=== PATIENT | female | born 1930 | race Hispanic/Latino ===

== ENCOUNTER 2016-12-23 10:16 | Emergency (ER) | payer MEDICARE, BC ==
[2016-12-23 10:17] VITALS: BMI 28.3
[2016-12-23 10:24] VITALS: TEMP 97.9
--- NOTE | 2016-12-23 11:06 | RAD ---
PROCEDURE: Left Hip with pelvis X-ray Radiographs. HISTORY: r/o fx COMPARISON: Abdomen and pelvis CT examination 05/05/2016. FINDINGS: BONES: There is no acute fracture dislocation of the left hip joint with the pelvic ring appearing intact grossly. This includes the pubic symphysis. No suspicious lytic or blastic change. Diffuse osteopenia suggests osteoporosis JOINTS: Cortical sclerosis at the bilateral sacroiliac and left hip joint are compatible with osteoarthritis, moderate severity. A status post right shoulder replacement. SOFT TISSUES: Gallstones identified the inferior margin of the right lower quadrant confirmed on prior and pelvis CT noted above. OTHER FINDINGS: Instill note is made of multilevel advanced degenerative lumbar spondylosis. The petrous noted in the region of the vagina as well. IMPRESSION: No acute fracture or dislocation left hip joint or the pelvic ring as discussed above. Diffuse osteopenia suggests osteoporosis. Right total hip replacement hardware is identified in position. Other lesser findings as discussed above.
--- NOTE | 2016-12-23 12:22 | RAD ---
PROCEDURE: Left Foot Radiographs. HISTORY: r/o fx COMPARISON: None available. FINDINGS: BONES: Severe diffuse osseous demineralization limits evaluation for acute fracture lines. Oblique lucency is noted on a single view within the distal fibula medially; this is suspected artifactual however recommend correlation with physical exam to exclude possibility of acute fracture. The remainder of the visualized osseous structures appear intact. JOINTS: No dislocation. SOFT TISSUES: Soft tissue swelling. No evidence of radiopaque foreign body. OTHER FINDINGS: None. IMPRESSION: Severe diffuse osseous demineralization limits evaluation for acute fracture lines. Oblique lucency is noted on a single view within the distal fibula medially; this is suspected artifactual however recommend correlation with physical exam to exclude possibility of acute fracture. Soft tissue swelling.
[2016-12-23 13:45] VITALS: BP 155/84; PULSE 78; RESP 16; O2SAT 98
--- NOTE | 2016-12-23 14:03 | C.PDOC ---
History Of Present Illness 86 y/o female presents to ED s/p trip and fall PTAwith complaints of left hip and left foot pain. Patient states she was using walker and walker got stuck in door way. Patient reports falling onto wall and sliding down injuring left side. Patient is able to bear weight and admits to chronic leg problems/pain for years. No other complaints at this time. Time Seen by Provider: 12/23/16 10:32 Chief Complaint (Nursing): Lower Extremity Problem/Injury History Per: Patient History/Exam Limitations: no limitations Onset/Duration Of Symptoms: Hrs Current Symptoms Are (Timing): Still Present - Hip Description Of Injury: Fell - Knee Description Of Injury: Fell Past Medical History Reviewed: Historical Data, Nursing Documentation, Vital Signs Vital Signs: Last Vital Signs Temp 97.9 F 12/23/16 10:21 Pulse 78 12/23/16 13:45 Resp 16 12/23/16 13:45 BP 155/84 H 12/23/16 13:45 Pulse Ox 98 12/23/16 14:04 - Medical History PMH: Anemia, Back Problems Surgical History: No Surg Hx - [facility] Procedures ENDO RECTUM POLYPECTOMY (10/10/02) Family History: States: No Known Family Hx - Social History Hx Alcohol Use: No Hx Substance Use: No - Immunization History Hx Tetanus Toxoid Vaccination: No Hx Influenza Vaccination: Yes (2 weeks ago) Hx Pneumococcal Vaccination: No Review Of Systems Except As Marked, All Systems Reviewed And Found Negative. Eyes: Negative for: Vision Change Cardiovascular: Negative for: Chest Pain Respiratory: Negative for: Shortness of Breath Gastrointestinal: Negative for: Nausea, Vomiting Musculoskeletal: Positive for: Leg Pain, Other (hip pain) Skin: Negative for: Rash Neurological: Negative for: Weakness, Numbness Physical Exam - Physical Exam Appears: Non-toxic, No Acute Distress Skin: Warm, Dry, No Rash Head: Atraumatic, Normacephalic Eye(s): bilateral: Normal Inspection Oral Mucosa: Moist Neck: Normal ROM, Supple Extremity: Tenderness (mild to lateral dorsal portion of left leg and left hip) , Capillary Refill (<2 seconds), No Deformity, Other (chronic venous changes bilateral) Pulses: Left Dorsalis Pedis: Normal, Right Dorsalis Pedis: Normal Neurological/Psych: Oriented x3, Normal Speech, Normal Cognition, Normal Motor, Normal Sensation ED Course And Treatment O2 Sat by Pulse Oximetry: 98 (RA) Pulse Ox Interpretation: Normal Disposition - Disposition Disposition: HOME/ ROUTINE Disposition Time: 12:25 Condition: GOOD Additional Instructions: Thank you for letting us take care of you today. Your provider was Dr. Dempsey. You were treated for hip and foot contusion. The emergency medical care you received today was directed at your acute symptoms. If you were prescribed any medication, please fill it and take as directed. It may take several days for your symptoms to resolve. Return to the Emergency Department if your symptoms worsen, do not improve, or if you have any other problems. Please contact your doctor or call one of the physicians/clinics you have been referred to that are listed on the Patient Visit Information form that is included in your discharge packet. Bring any paperwork you were given at discharge with you along with any medications you are taking to your follow up visit. Our treatment cannot replace ongoing medical care by a primary care provider (PCP) outside of the emergency department. Thank you for allowing the [facility] team to be part of your care today. Apply ice to the areas for the next 2-3 days. You can take ibuprofen or tylenol as needed for pain. Please follow up with your doctor in 2-3 days for re-evaluation and further management. Instructions: Foot Contusion (ED), Hip Contusion (ED) Forms: Kiromic (Romanian) - Clinical Impression Clinical Impression: Hip pain, Foot pain - Scribe Statement The provider has reviewed the documentation as recorded by the Arnulfoibangeles Osullivan All medical record entries made by the Arnulfoibangeles were at my direction and personally dictated by me. I have reviewed the chart and agree that the record accurately reflects my personal performance of the history, physical exam, medical decision making, and the department course for this patient. I have also personally directed, reviewed, and agree with the discharge instructions and disposition.
== END 2016-12-23 13:45 | disposition home or self-care (01) ==
LOC: C.ER 10:16
DX: M25.552 Pain in left hip (principal); M79.672 Pain in left foot

== ENCOUNTER 2017-01-09 02:59 | Emergency (ER) | payer MEDICARE, BC ==
[2017-01-09 02:59] VITALS: BMI 28.3
[2017-01-09] MEDS ORDERED: Sodium Chloride 0.9% 1,000 ML IV ONE (04:42)
[2017-01-09 05:03] LABS: BASO # 0.1 K/uL (0.0-0.2); BASO % 0.8 % (0.0-2.0); EOS # 0.3 K/uL (0.0-0.7); EOS % 2.8 % (0.0-4.0); HEMATOCRIT 34.2 % (34.0-47.0); LYMPH # 4.1 K/uL (1.0-4.3); LYMPH % 33.4 % (20.0-40.0); MEAN CELL VOLUME 92.8 fL (81.0-99.0); MEAN CORPUSCULAR HEMOGLOBIN 30.3 pg (27.0-31.0); MEAN CORPUSCULAR HGB CONC 32.7 g/dL (33.0-37.0); MEAN PLATELET VOLUME 9.2 fL (7.2-11.7); MONO # 0.6 K/uL (0.0-0.8); MONO % 5.1 % (0.0-10.0); WHITE BLOOD COUNT 12.1 K/uL (4.8-10.8)
[2017-01-09 05:10] LABS: INR 1.1
[2017-01-09 05:12] LABS: POTASSIUM 3.8 mmol/L (3.6-5.2)
[2017-01-09 05:15] LABS: ALB/GLOB RATIO 1.4 (1.0-2.1); BILIRUBIN,TOTAL 0.6 mg/dL (0.2-1.3); CALCIUM 9.8 mg/dl (8.6-10.4); TOTAL PROTEIN 7.1 g/dL (6.3-8.3)
[2017-01-09 05:26] LABS: RBC URINE 4053 /hpf (0-3); URINE BACTERIA MOD (<OCC); URINE BILIRUBIN NEGATIVE (NEGATIVE); URINE BLOOD 3+ (NEGATIVE); URINE COLOR Amber (YELLOW); URINE GLUCOSE (UA) 1+ mg/dL (Normal); URINE KETONE TRACE mg/dL (NEGATIVE); URINE LEUKOCYTE ESTERASE NEG Leu/uL (Negative); URINE PROTEIN 2+ mg/dL (NEGATIVE); URINE UROBILINOGEN NORMAL mg/dL (0.2-1.0)
--- NOTE | 2017-01-09 06:43 | C.PDOC ---
History Of Present Illness 86 yo female BIBA for evaluation of diffuse vaginal bleeding noted since early today. Pt reports, vaginal bleeding started few days ago as spotting and worsen today. Pt sts, noted some clots as well. Otherwise, pt denies known trauma or injury, fever, chills, headache, dizziness, weakness, CP, SOB, dyspnea , diaphoresis, palpitation, abd. pain, N/V/D, denies recent surgery or complaints, Denies anticoagulation therapy. At [facility] time of evaluation appears comfortable, not in any apparent distress. Pt reports previous hx of bladder prolapse with repair 4 yrs ago. Time Seen by Provider: 01/09/17 04:02 Chief Complaint (Nursing): Female Genitourinary History Per: Patient Past Medical History Reviewed: Historical Data, Nursing Documentation, Vital Signs Vital Signs: Last Vital Signs Temp 98 F 01/09/17 03:17 Pulse 65 01/09/17 03:17 Resp 20 01/09/17 03:17 BP 176/67 H 01/09/17 03:17 Pulse Ox 96 01/09/17 03:17 - Medical History PMH: Anemia, Back Problems, Hypercholesterolemia, Hypothyroidism Denies: Chronic Kidney Disease - [facility] Procedures ENDO RECTUM POLYPECTOMY (10/10/02) Family History: States: No Known Family Hx - Social History Hx Alcohol Use: No Hx Substance Use: No - Immunization History Hx Tetanus Toxoid Vaccination: No Hx Influenza Vaccination: Yes Hx Pneumococcal Vaccination: No Review Of Systems Except As Marked, All Systems Reviewed And Found Negative. Constitutional: Negative for: Fever, Chills ENT: Negative for: Throat Pain Cardiovascular: Negative for: Chest Pain Respiratory: Negative for: Cough, Shortness of Breath Gastrointestinal: Negative for: Nausea, Vomiting, Abdominal Pain, Diarrhea Genitourinary: Positive for: Vaginal Bleeding. Negative for: Dysuria, Frequency Musculoskeletal: Negative for: Back Pain Neurological: Negative for: Altered Mental Status Physical Exam - Physical Exam Appears: Well, No Acute Distress Skin: Normal Color, Warm, Dry Eye(s): bilateral: PERRL Nose: No Flaring Throat: No Erythema, No Exudate, No Drooling Neck: Trachea Midline, Supple Cardiovascular: Rhythm Regular, No Murmur, No JVD Respiratory: No Decreased Breath Sounds, No Accessory Muscle Use, No Stridor, No Wheezing Gastrointestinal/Abdominal: Soft, No Tenderness, No Distention, No Guarding Back: No CVA Tenderness Pelvic: Vaginal Bleeding (continous bloody oozng with uterine prolapse) Extremity: Normal ROM, No Pedal Edema Neurological/Psych: Oriented x3, Normal Speech ED Course And Treatment - Laboratory Results Result Diagrams: 01/09/17 05:00 01/09/17 05:00 Lab Interpretation: No Acute Changes O2 Sat by Pulse Oximetry: 96 Pulse Ox Interpretation: Normal Progress Note: Pt remained stable during the ED evaluation. Blood work review and appears without acute abnormalities. CT abd/pelvis-pending. Case discussed with Galina and sign out for further eval/dispo. Disposition - Disposition Disposition Time: 06:47 Condition: STABLE - Clinical Impression Clinical Impression: Vaginal bleeding, Vaginal prolapse Physician Patient Turnover Patient Signed Over To: Mari Pa Handoff Comments: CT abd/pelvis, re-eval,dispo
[2017-01-09] MEDS ORDERED: Iodixanol 320 MG/ML 100 ML BOTTLE IV ONE (09:31)
--- NOTE | 2017-01-09 11:31 | CT ---
PROCEDURE: CT abdomen pelvis dated 01/09/2017 HISTORY: Vaginal bleeding COMPARISON: Comparison made with prior CT scan of the abdomen pelvis dated 05/05/2016 TECHNIQUE: Contiguous axial images of the abdomen and pelvis. Oral contrast was administered. No IV contrast given. Coronal and Sagittal reformats generated. This CT exam was performed using one or more of the following dose reduction techniques: Automated exposure control, adjustment of the mA and/or kV according to patient size, and/or use of iterative reconstruction technique. Total exam DLP = 799.47 mGy-cm. FINDINGS: LOWER THORAX: Mild bibasilar atelectasis/ scarring changes. No effusion or basilar pneumothorax. . Heart size is within range of normal. No significant pericardial effusion. Extensive on mitral valve calcification. LIVER: Re- demonstrated are multiple nonspecific small low-attenuation foci scattered throughout the hepatic parenchyma of uncertain etiology though essentially unchanged in overall appearance so far as can be seen allowing for differences in patient positioning, slice placement and lack of intravenous contrast material on the current study. The. GALLBLADDER AND BILE DUCTS: Gallbladder is moderately distended with multiple intraluminal gallbladder calculi. PANCREAS: Pancreas is again seen to be somewhat atrophic and fatty replaced. The the the the SPLEEN: Spleen appears grossly unremarkable. ADRENALS: Unremarkable. KIDNEYS AND URETERS: Multiple bilateral renal cysts are again seen 1 of which arises from the lateral upper pole left kidney that is somewhat hyperdense with Hounsfield units in the 50s. This could represent hyperdense cyst. Consider followup on renal ultrasound to confirm and exclude solid lesion. No BLADDER: The urinary bladder is predominately obscured by streak and beam hardening artifact arising from right-sided total hip replacement. REPRODUCTIVE: What appears to represent the uterus is also partially obscured by streak and beam hardening artifact arising from right total hip replacement. . In situ pessary. APPENDIX: Appendix not seen with complete certainty however no obvious inflammatory changes right lower quadrant of the abdomen. BOWEL: Evaluation of the bowel is limited due to the lack of oral contrast material. The stomach is incompletely distended which presumably accounts for slight thick-walled appearance. Gastritis or other intrinsic/invasive wall lesion cannot be excluded. Visualized loops of small bowel exhibit normal contour and caliber. No evidence of acute mechanical small bowel obstruction. Extensive diverticulosis the bulk of which arise from the sigmoid and to a lesser degree distal descending colon. No definitive radiographic evidence of acute diverticulitis PERITONEUM: Unremarkable. No fluid collection. No free air. Small fat containing umbilical hernia. LYMPH NODES: Unremarkable. No enlarged lymph nodes. VASCULATURE: Partially calcified atherosclerotic plaque seen along the abdominal aorta and iliac arteries. BONES: Re- demonstrated are chronic appearing anterior wedge compression deformities of the L3 and L4 segments former more significant than latter. There is also on incomplete compression deformity submitted and left lateral superior L5 endplate. OTHER FINDINGS: None. IMPRESSION: Cholelithiasis. Re- demonstrated arm multiple small nonspecific low-attenuation foci scattered throughout the hepatic parenchyma on which have not significantly changed so far as can be determined given differences between studies as mentioned above. Multiple bilateral renal cysts. There is however a small exophytic hyperdense focus arising from the lateral aspect upper pole left kidney that could represent hyperdense cyst. Followup ultrasound could be performed to exclude a solid lesion. Urinary bladder and uterus partially obscured by streak and beam hardening artifact. In situ pessary. Extensive diverticulosis with no definitive radiographic evidence of acute diverticulitis. See above discussion for additional findings and details.
[2017-01-09 14:38] VITALS: BP 160/82; PULSE 76; RESP 16; TEMP 98.4; O2SAT 99
--- NOTE | 2017-01-09 16:48 | CP.PCM.CON ---
<Shayy Lemus - Last Filed: 01/09/17 19:22> Meds Home Medications: Home Medication List Medication Instructions Recorded Confirmed Type Nitrofurantoin Macrocrystals 1 cap PO BID #20 cap 01/09/17 Rx [Macrobid] Allergies/Adverse Reactions: Allergies Allergy/AdvReac Type Severity Reaction Status Date / Time levofloxacin [From Levaquin] Allergy Verified 01/09/17 03:25 Penicillins Allergy RASH Verified 01/09/17 03:25 Results - Vital Signs Recent Vital Signs: Last Vital Signs Temp 98.4 F 01/09/17 14:37 Pulse 76 01/09/17 14:37 Resp 16 01/09/17 14:37 BP 160/82 H 01/09/17 14:37 Pulse Ox 99 01/09/17 14:37 - Labs Result Diagrams: 01/09/17 05:00 01/09/17 05:00 Labs: Laboratory Results - last 24 hr 01/09/17 01/09/17 01/09/17 05:00 05:00 05:00 WBC 12.1 H D RBC 3.68 L Hgb 11.2 Hct 34.2 MCV 92.8 D MCH 30.3 MCHC 32.7 L RDW 14.0 Plt Count 292 MPV 9.2 Neut % (Auto) 57.9 Lymph % (Auto) 33.4 [place] % (Auto) 5.1 Eos % (Auto) 2.8 Baso % (Auto) 0.8 Neut # 7.0 Lymph # 4.1 [place] # 0.6 Eos # 0.3 Baso # 0.1 PT 12.0 INR 1.1 APTT 34 Sodium Potassium Chloride Carbon Dioxide Anion Gap BUN Creatinine Est GFR ( Amer) Est GFR (Non-Af Amer) Random Glucose Calcium Total Bilirubin AST ALT Alkaline Phosphatase Total Protein Albumin Globulin Albumin/Globulin Ratio Urine Color [place] Urine Clarity Turbid Urine pH 6.0 Ur Specific [place] 1.015 Urine Protein 2+ H Urine Glucose (UA) 1+ Urine Ketones Trace Urine Blood 3+ H Urine Nitrate Negative Urine Bilirubin Negative Urine Urobilinogen Normal Ur Leukocyte Esterase Neg Urine RBC (Auto) 4053 H Urine Bacteria Mod H Stool Occult Blood 01/09/17 01/09/17 05:00 12:06 WBC RBC Hgb Hct MCV MCH MCHC RDW Plt Count MPV Neut % (Auto) Lymph % (Auto) [place] % (Auto) Eos % (Auto) Baso % (Auto) Neut # Lymph # [place] # Eos # Baso # PT INR APTT Sodium 136 Potassium 3.8 Chloride 102 Carbon Dioxide 21 L Anion Gap 17 BUN 30 H Creatinine 1.2 Est GFR ( Amer) 51 Est GFR (Non-Af Amer) 42 Random Glucose 102 Calcium 9.8 Total Bilirubin 0.6 AST 27 ALT 27 Alkaline Phosphatase 256 H Total Protein 7.1 Albumin 4.2 Globulin 2.9 Albumin/Globulin Ratio 1.4 Urine Color Urine Clarity Urine pH Ur Specific [place] Urine Protein Urine Glucose (UA) Urine Ketones Urine Blood Urine Nitrate Urine Bilirubin Urine Urobilinogen Ur Leukocyte Esterase Urine RBC (Auto) Urine Bacteria Stool Occult Blood Negative <Ofelia Chilel - Last Filed: 01/10/17 14:48> History of Present Illness - History of Present Illness History of Present Illness: Asked by BOB Eldridge to evaluate patient for presumed vaginal bleeding Patient was seen and evaluated at approximately 1130 hours. She was received in bed #2; then transferred to the Multi-Purpose Room to facilitate vaginal examination. Patient is a good historian - recalls facts very well; exact dates are not as precise. Patient is an 86 y.o. [id number], LMP - approx mid to late 40's; who presented to the E.D. concerned about new onset "vaginal bleeding", heavy last night. HPI: onset of vaginal spotting 2 days ago. This is the first time she has had any vaginal (post menopausal) bleeding. Currently, feels a sense of pressure in the vaginal area. Patient has a regular basketball commentator provider: Dr. Cid, [facility] - has been with her for 6 yrs (+/-). 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 She had used a pessary for several years; ultimately underwent bladder suspension with "a mesh" approx 5 year ago. However, "the vaginal wise still started to come down"; hence, pessary was resumed. Patient has had no problems with the pessary for "many years. ... I go to Dr. Cid every 3 months". The pessary is removed, cleaned and reinserted. Patient last saw Dr. Cid 1 1/2 weeks ago. 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 Cid took pieces of tissue". P Ob: x 4: female 66 y.o.; male 64 y.o.; male 57 y.o.; female 51 y.o. Spont Ab x 1 P PURSE SEINING HAND: 13 x monthly x 5. Last Pap test - doesn't recall. Last mammogram >= 10 years ago. 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 Patient alludes to there being other possible surgeries Meds: see body of chart Allergies: 1) penicillin = rash; 2) levofloxacin - intense reaction in her veins as drug is infusing Soc Hx: Prev tobacco use x 50 yrs: stopped 27 yrs ago. Denies illicit drug or EtOH use. x 2; x 2. 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 Father age 30s - pneumonia. No other fam h/o cancer Review of Systems - Review of Systems All systems: reviewed and no additional remarkable complaints except - Reproductive: Female Additional comments: postmenopausal bleeding Past Patient History - Infectious Disease Hx of Infectious Diseases: None - Past Medical History & Family History Past Medical History?: Yes - Past Social History Smoking Status: Former Smoker Chewing Tobacco Use: No Cigar Use: No Alcohol: None Home Situation {Lives}: Alone - CARDIAC Hx Hypercholesterolemia: Yes - PULMONARY Hx Respiratory Disorders: No - NEUROLOGICAL Hx Neurological Disorder: Yes Other/Comment: MENIERES DISEASE - HEENT Hx HEENT Problems: No - RENAL Hx Chronic Kidney Disease: No - ENDOCRINE/METABOLIC Hx Hypothyroidism: Yes - HEMATOLOGICAL/ONCOLOGICAL Hx Anemia: Yes - INTEGUMENTARY Hx Dermatological Problems: No - MUSCULOSKELETAL/RHEUMATOLOGICAL Hx Musculoskeletal Disorders: Yes Hx Falls: No Hx Herniated Disk: Yes Hx Unsteady Gait: Yes - GASTROINTESTINAL Hx Gastrointestinal Disorders: Yes Hx Constipation: Yes - GENITOURINARY/GYNECOLOGICAL Hx Genitourinary Disorders: Yes Other/Comment: Cystocele; vaginal wall prolapse : 5 Para: 4 Termination of : 1 - PSYCHIATRIC Hx Substance Use: No - SURGICAL HISTORY Hx Surgeries: Yes Hx Orthopedic Surgery: Yes (RT HIP) Hx Thyroidectomy: Yes Other/Comment: BLADDER SX - ANESTHESIA Hx Anesthesia: Yes Hx Anesthesia Reactions: Yes (SEVERE N&V) Hx Malignant Hyperthermia: No Physical Exam - Constitutional Appears: No Acute Distress - Head Exam Head Exam: NORMAL INSPECTION - ENT Exam ENT Exam: Mucous Membranes Dry - Neck Exam Neck exam: Positive for: Full Rom - Respiratory Exam Respiratory Exam: NORMAL BREATHING PATTERN - Cardiovascular Exam Cardiovascular Exam: REGULAR RHYTHM - GI/Abdominal Exam GI & Abdominal Exam: Soft Additional comments: Appropriate age-related protruberance - Rectal Exam Rectal Exam: NORMAL INSPECTION Additional comments: No external hemorrhoids; possible internal hemorrhoids. Full rectal vault - Exam Additional comments: 1) WD, atrophic external female genitalia. No active bleeding noted as patient was transferred from one stretcher to the other 2) (+) rectocele noted 3) Pessary removed and cleaned 4) Speculum exam: atrophic vaginal vault. NO BLOOD per vagina. right paravaginal wall defect noted. Flushed cervix noted; no bleeding per cervical os noted. Small area of pressure necrosis noted along right lateral vaginal wall , 4 x 5 mm. Oozing stopped with pressure. - Back Exam Additional comments: Mild kyphosis - Neurological Exam Neurological exam: Alert - Psychiatric Exam Psychiatric exam: Anxious - Skin Skin Exam: Dry, Pallor, Warm Results - Vital Signs Recent Vital Signs: Last Vital Signs Temp 98.4 F 01/09/17 14:37 Pulse 76 01/09/17 14:37 Resp 16 01/09/17 14:37 BP 160/82 H 01/09/17 14:37 Pulse Ox 99 01/09/17 14:37 - Labs Result Diagrams: 01/09/17 05:00 01/09/17 05:00 Labs: Laboratory Results - last 24 hr 01/09/17 01/09/17 01/09/17 05:00 05:00 05:00 WBC 12.1 H D RBC 3.68 L Hgb 11.2 Hct 34.2 MCV 92.8 D MCH 30.3 MCHC 32.7 L RDW 14.0 Plt Count 292 MPV 9.2 Neut % (Auto) 57.9 Lymph % (Auto) 33.4 [place] % (Auto) 5.1 Eos % (Auto) 2.8 Baso % (Auto) 0.8 Neut # 7.0 Lymph # 4.1 [place] # 0.6 Eos # 0.3 Baso # 0.1 PT 12.0 INR 1.1 APTT 34 Sodium Potassium Chloride Carbon Dioxide Anion Gap BUN Creatinine Est GFR ( Amer) Est GFR (Non-Af Amer) Random Glucose Calcium Total Bilirubin AST ALT Alkaline Phosphatase Total Protein Albumin Globulin Albumin/Globulin Ratio Urine Color [place] Urine Clarity Turbid Urine pH 6.0 Ur Specific [place] 1.015 Urine Protein 2+ H Urine Glucose (UA) 1+ Urine Ketones Trace Urine Blood 3+ H Urine Nitrate Negative Urine Bilirubin Negative Urine Urobilinogen Normal Ur Leukocyte Esterase Neg Urine RBC (Auto) 4053 H Urine Bacteria Mod H Stool Occult Blood 01/09/17 01/09/17 05:00 12:06 WBC RBC Hgb Hct MCV MCH MCHC RDW Plt Count MPV Neut % (Auto) Lymph % (Auto) [place] % (Auto) Eos % (Auto) Baso % (Auto) Neut # Lymph # [place] # Eos # Baso # PT INR APTT Sodium 136 Potassium 3.8 Chloride 102 Carbon Dioxide 21 L Anion Gap 17 BUN 30 H Creatinine 1.2 Est GFR ( Amer) 51 Est GFR (Non-Af Amer) 42 Random Glucose 102 Calcium 9.8 Total Bilirubin 0.6 AST 27 ALT 27 Alkaline Phosphatase 256 H Total Protein 7.1 Albumin 4.2 Globulin 2.9 Albumin/Globulin Ratio 1.4 Urine Color Urine Clarity Urine pH Ur Specific [place] Urine Protein Urine Glucose (UA) Urine Ketones Urine Blood Urine Nitrate Urine Bilirubin Urine Urobilinogen Ur Leukocyte Esterase Urine RBC (Auto) Urine Bacteria Stool Occult Blood Negative Assessment & Plan - Assessment and Plan (Free Text) Assessment: 86 y.o. post menopausal female new onset bleeding from lower half of body: aetiology unclear. Based on my evaluation, source of bleeding is not of clear basketball commentator aetiology; however, given patient's reported "cancer" diagnosis as stated above, a basketball commentator cause must still be entertained. Other causes are of and GI nature. To this end, would obtain with and GI consultations. Also, need verification with documentation of previously stated basketball commentator cancer. Plan: 1) GI consult 2) consult 3) Obtain medical records from basketball commentator provider to document basketball commentator cancer 4) If basketball commentator cancer is verified, upon discharge, if patient is receptive, please refer to a basketball commentator-oncologist. Thank you for the pleasure of this consultation - Date & Time Date: 01/09/17 Time: 12:30
== END 2017-01-09 14:38 | disposition home or self-care (01) ==
LOC: C.ER 02:59
DX: N93.9 Abnormal uterine and vaginal bleeding, unspecified (principal); N81.10 Cystocele, unspecified; E78.00 Pure hypercholesterolemia, unspecified; E03.9 Hypothyroidism, unspecified
CPT/HCPCS: 74176; 80053; 81001; 85025; 85610; 85730; 99285; G0328

== ENCOUNTER 2017-03-01 15:33 | Inpatient (IN) | payer MEDICARE, BC ==
[2017-03-01 15:33] VITALS: BMI 28.3
[2017-03-01 17:53] LABS: URINE BILIRUBIN NEGATIVE (NEGATIVE); URINE BLOOD 3+ (NEGATIVE); URINE CLARITY Turbid (Clear); URINE GLUCOSE (UA) 1+ mg/dL (Normal); URINE LEUKOCYTE ESTERASE 2+ Leu/uL (Negative); URINE NITRATE POSITIVE (NEGATIVE); URINE PROTEIN 3+ mg/dL (NEGATIVE)
[2017-03-01 17:54] LABS: URINE COLOR RED (YELLOW)
[2017-03-01 18:41] LABS: BASO # 0.1 K/uL (0.0-0.2); BASO % 0.5 % (0.0-2.0); EOS # 0.5 K/uL (0.0-0.7); EOS % 4.9 % (0.0-4.0); HEMOGLOBIN 10.4 g/dL (11.0-16.0); LYMPH # 2.9 K/uL (1.0-4.3); LYMPH % 27.3 % (20.0-40.0); MEAN CELL VOLUME 91.8 fL (81.0-99.0); MEAN CORPUSCULAR HEMOGLOBIN 29.7 pg (27.0-31.0); MEAN CORPUSCULAR HGB CONC 32.4 g/dL (33.0-37.0); MEAN PLATELET VOLUME 10.6 fL (7.2-11.7); MONO # 0.6 K/uL (0.0-0.8); MONO % 5.8 % (0.0-10.0); NEUT # 6.4 K/uL (1.8-7.0); NEUT % 61.5 % (50.0-75.0); NRBC % 0.2 % (0.0-2.0); RBC 3.51 Mil/uL (3.80-5.20); RED CELL DISTRIBUTION WIDTH 15.1 % (11.5-14.5); WHITE BLOOD COUNT 10.5 K/uL (4.8-10.8)
[2017-03-01 18:52] LABS: ALB/GLOB RATIO 0.9 (1.0-2.1); ALBUMIN 3.7 g/dL (3.5-5.0); CALCIUM 9.4 mg/dl (8.6-10.4)
[2017-03-01 18:57] LABS: PROTHROMBIN TIME 11.7 SECONDS (9.7-12.2)
--- NOTE | 2017-03-01 19:03 | C.PDOC ---
History Of Present Illness 86 year old female presents to the ER with a complaint of persistent dysuria and hematuria. Patient was recently treated as outpatient with macrobid with no improvement and was referred to the ER by her PMD Dr. Lopez. Denies back pain or abdominal pain. Time Seen by Provider: 03/01/17 16:18 Chief Complaint (Nursing): Female Genitourinary History Per: Patient History/Exam Limitations: no limitations Onset/Duration Of Symptoms: Days Current Symptoms Are (Timing): Still Present Quality Of Discomfort: Unable To Describe Associated Symptoms: denies: Fever, Chills, Nausea, Vomiting Alleviating Factors: None Recent travel outside of the [place]: No Abnormal Vaginal Bleeding: No Past Medical History Reviewed: Historical Data, Nursing Documentation, Vital Signs Vital Signs: Last Vital Signs Temp 97.9 F 03/01/17 22:32 Pulse 70 03/01/17 22:32 Resp 20 03/01/17 22:32 BP 178/74 H 03/01/17 22:32 Pulse Ox 95 03/01/17 21:39 - Medical History PMH: Anemia, Back Problems, Hypercholesterolemia, Hypothyroidism - [facility] Procedures ENDO RECTUM POLYPECTOMY (10/10/02) Family History: States: Unknown Family Hx - Social History Hx Alcohol Use: No Hx Substance Use: No - Immunization History Hx Tetanus Toxoid Vaccination: No Hx Influenza Vaccination: Yes Hx Pneumococcal Vaccination: No Review Of Systems Constitutional: Negative for: Fever, Chills Gastrointestinal: Negative for: Nausea, Vomiting, Abdominal Pain Genitourinary: Positive for: Dysuria, Hematuria Musculoskeletal: Negative for: Back Pain Physical Exam - Physical Exam Appears: Non-toxic, No Acute Distress Skin: Warm, Dry, Pale Head: Atraumatic, Normacephalic Eye(s): bilateral: Normal Inspection Oral Mucosa: Moist Neck: Normal, Supple Chest: Symmetrical, No Tenderness Cardiovascular: Rhythm Regular Respiratory: Normal Breath Sounds, No Rales, No Rhonchi, No Wheezing Gastrointestinal/Abdominal: Soft, No Tenderness Neurological/Psych: Oriented x3, Normal Speech ED Course And Treatment - Laboratory Results Result Diagrams: 03/01/17 18:35 03/01/17 18:35 Lab Interpretation: Abnormal (UA 315 WBC's) ECG: Interpreted By Ri ECG Rhythm: Sinus Rhythm ECG Interpretation: Normal Rate From EC O2 Sat by Pulse Oximetry: 97 Pulse Ox Interpretation: Normal Progress Note: UTI noted, Rocephin IV, U-cult, blood cult Reevaluation Time: 19:02 Reassessment Condition: Improved - Physician Consult Information Outcome Of Conversation: 1900: d/w Hospitalists- covering Dr. Lopez's pt's, ok to admit. Medical Decision Making Medical Decision Making: peristent UTI, failed outpatient tx with Macrobid, concerning for worstening and risk for Pyelonephritis. Disposition Doctor Will See Patient In The: Hospital Counseled Patient/Family Regarding: Studies Performed, Diagnosis - Disposition Disposition: HOSPITALIZED Disposition Time: 19:03 Condition: GOOD - Clinical Impression Clinical Impression: UTI (urinary tract infection) - Scribe Statement The provider has reviewed the documentation as recorded by the Scribe Hugo Ford All medical record entries made by the Scribe were at my direction and personally dictated by me. I have reviewed the chart and agree that the record accurately reflects my personal performance of the history, physical exam, medical decision making, and the department course for this patient. I have also personally directed, reviewed, and agree with the discharge instructions and disposition.
--- NOTE | 2017-03-01 19:18 | CP.PCM.HP ---
Addendum entered and electronically signed by Darien Wynn DO 03/01/17 22: 11: Patient does have elevated LFTs, have ordered hepatitis panel for that. Cancelled the order for Morphine as well. Original Note: <Darien Wynn - Last Filed: 03/01/17 22:05> History of Present Illness - History of Present Illness History of Present Illness: CC: Hematuria and Dysuira HPI: Patient is a 86 year old female with a history of frequent UTI, abnormal uterine bleeding, Gout, GERD, and low back pain is here because she has been having gross hematuria for several days with a pressure like lower abdominal pain also associated with urination. She says she had a similar UTI in the past and was treated with PO antibiotics and got better. She was given the same oral antibiotic for UTI last week but her symptoms have not resolved. She says she has been having some dizziness as well. She denies fever, chills, nausea, vomiting, chest pain, palpitations, cough, or chest tightness. Patient uses a pessary for uterine prolapse and is sen by her [employer] physician atleast once a month. PMH: see above PSH: right hip surgery, bladder sling surgery FH: Mother diagnosed with cancer when she was in her 80s SH: 50 year smoking history, denies etoh, or illicit drug use, retired, lives alone. PMD: Dr. Ramirez Present on Admission - Present on Admission Any Indicators Present on Admission: No History of DVT/PE: No History of Uncontrolled Diabetes: No Urinary Catheter: No Decubitus Ulcer Present: No History Surgical Site Infection Following: None Review of Systems - Review of Systems All systems: reviewed and no additional remarkable complaints except - Constitutional Constitutional: absent: Chills, Fever - EENT Eyes: absent: Change in Vision - Cardiovascular Cardiovascular: absent: Chest Pain, Palpitations - Respiratory Respiratory: absent: Cough, Dyspnea - Gastrointestinal Gastrointestinal: absent: Abdominal Pain, Constipation, Diarrhea, Nausea, Vomiting - Genitourinary Genitourinary: Dysuria, Hematuria. absent: Urinary Frequency - Reproductive: Female Reproductive:Female: Amenorrhea - Menstruation Menstruation: Amenorrhea - Musculoskeletal Musculoskeletal: Back Pain (chronic). absent: Numbness, Tingling - Integumentary Integumentary: absent: Wounds, Jaundice - Neurological Neurological: absent: Dizziness, Weakness - Psychiatric Psychiatric: absent: Anxiety - Endocrine Endocrine: absent: Palpitations - Hematologic/Lymphatic Hematologic: absent: Other Past Patient History - Infectious Disease Hx of Infectious Diseases: None - Past Medical History & Family History Past Medical History?: Yes - Past Social History Smoking Status: Former Smoker - CARDIAC Hx Hypercholesterolemia: Yes - PULMONARY Hx Respiratory Disorders: No - NEUROLOGICAL Hx Neurological Disorder: Yes Other/Comment: MENIERES DISEASE - HEENT Hx HEENT Problems: No - RENAL Hx Chronic Kidney Disease: No - ENDOCRINE/METABOLIC Hx Hypothyroidism: Yes - HEMATOLOGICAL/ONCOLOGICAL Hx Anemia: Yes - INTEGUMENTARY Hx Dermatological Problems: No - MUSCULOSKELETAL/RHEUMATOLOGICAL Hx Musculoskeletal Disorders: Yes Hx Falls: No Hx Herniated Disk: Yes Hx Unsteady Gait: Yes - GASTROINTESTINAL Hx Gastrointestinal Disorders: Yes Hx Constipation: Yes - GENITOURINARY/GYNECOLOGICAL Hx Genitourinary Disorders: Yes Other/Comment: Cystocele; vaginal wall prolapse - PSYCHIATRIC Hx Substance Use: No - SURGICAL HISTORY Hx Surgeries: Yes Hx Orthopedic Surgery: Yes (RT HIP) Hx Thyroidectomy: Yes Other/Comment: BLADDER SX - ANESTHESIA Hx Anesthesia: Yes Hx Anesthesia Reactions: Yes (SEVERE N&V) Hx Malignant Hyperthermia: No Meds Allergies/Adverse Reactions: Allergies Allergy/AdvReac Type Severity Reaction Status Date / Time levofloxacin [From Levaquin] Allergy Verified 01/09/17 03:25 Penicillins Allergy RASH Verified 01/09/17 03:25 Physical Exam - Constitutional Appears: Non-toxic, No Acute Distress - Eye Exam Eye Exam: Normal appearance, PERRL. absent: Scleral icterus Pupil Exam: NORMAL ACCOMODATION - Respiratory Exam Respiratory Exam: Clear to Auscultation Bilateral. absent: Rales, Rhonchi, Wheezes - Cardiovascular Exam Cardiovascular Exam: REGULAR RHYTHM, RRR, +S1, +S2. absent: Gallop, Rubs - GI/Abdominal Exam GI & Abdominal Exam: Normal Bowel Sounds, Soft. absent: Distended, Guarding, Rebound, Tenderness - Exam External exam: absent: Lacerations, Lesions Additional comments: Pelvix exam shows pessary in place. - Extremities Exam Extremities exam: Positive for: normal inspection, tenderness. Negative for: pedal edema Additional comments: varicose veins present - Back Exam Back exam: NORMAL INSPECTION. absent: CVA tenderness (L), CVA tenderness (R) - Neurological Exam Neurological exam: Oriented x3 - Psychiatric Exam Psychiatric exam: Normal Affect, Normal Mood - Skin Skin Exam: Dry, Pallor, Warm Results - Vital Signs Recent Vital Signs: Last Vital Signs Temp Pulse 89 03/01/17 15:42 Resp 20 03/01/17 15:42 BP 156/76 H 03/01/17 15:42 Pulse Ox 97 03/01/17 19:03 - Labs Result Diagrams: 03/01/17 18:35 03/01/17 18:35 Labs: Laboratory Results - last 24 hr 03/01/17 03/01/17 03/01/17 17:30 18:35 18:35 WBC RBC Hgb Hct MCV MCH MCHC RDW Plt Count MPV Neut % (Auto) Lymph % (Auto) [place] % (Auto) Eos % (Auto) Baso % (Auto) Neut # Lymph # [place] # Eos # Baso # PT 11.7 INR 1.0 APTT 33 Sodium 139 Potassium 3.7 Chloride 107 Carbon Dioxide 23 Anion Gap 13 BUN 33 H Creatinine 1.2 Est GFR ( Amer) 51 Est GFR (Non-Af Amer) 42 Random Glucose 84 Calcium 9.4 Total Bilirubin 0.7 AST 68 H D ALT 57 H D Alkaline Phosphatase 282 H Total Protein 8.1 Albumin 3.7 Globulin 4.3 H Albumin/Globulin Ratio 0.9 L Urine Color Red Urine Clarity Turbid Urine pH 7.0 Ur Specific [place] 1.012 Urine Protein 3+ H Urine Glucose (UA) 1+ Urine Ketones 1+ H Urine Blood 3+ H Urine Nitrate Positive H Urine Bilirubin Negative Urine Urobilinogen 4.0 H Ur Leukocyte Esterase 2+ H Urine WBC (Auto) 315 H Urine RBC (Auto) 7015 H 03/01/17 18:35 WBC 10.5 RBC 3.51 L Hgb 10.4 L Hct 32.2 L MCV 91.8 MCH 29.7 MCHC 32.4 L RDW 15.1 H Plt Count 300 MPV 10.6 Neut % (Auto) 61.5 Lymph % (Auto) 27.3 [place] % (Auto) 5.8 Eos % (Auto) 4.9 H Baso % (Auto) 0.5 Neut # 6.4 Lymph # 2.9 [place] # 0.6 Eos # 0.5 Baso # 0.1 PT INR APTT Sodium Potassium Chloride Carbon Dioxide Anion Gap BUN Creatinine Est GFR ( Amer) Est GFR (Non-Af Amer) Random Glucose Calcium Total Bilirubin AST ALT Alkaline Phosphatase Total Protein Albumin Globulin Albumin/Globulin Ratio Urine Color Urine Clarity Urine pH Ur Specific [place] Urine Protein Urine Glucose (UA) Urine Ketones Urine Blood Urine Nitrate Urine Bilirubin Urine Urobilinogen Ur Leukocyte Esterase Urine WBC (Auto) Urine RBC (Auto) Assessment & Plan (1) UTI (urinary tract infection) Assessment and Plan: UA shows Nitrate, 315 WBCS, Luecocyte esterase, +3 protein. Patient admitted to reg/obs floor. Have given 1 gram of Rocephin in the ED, follow up blood and urine culture. Patient has a allergy to Levoquin and also to PCN. Status: Acute (2) Hematuria Assessment and Plan: will need to monitor patient. Hold her Aspirin and VTE prophylaxis. patient still has blood after obtaining UA through catheter placement. Will get Urology consult. Status: Acute (3) Anemia Assessment and Plan: Hbg is 10.3, continue to monitor transfuse as needed. Status: Acute (4) Vaginal prolapse Assessment and Plan: She has a pessarry, will most likely need [employer] consult. Urology consult, Dr. Obed Walker help appreciated. Status: Chronic (5) Gout Assessment and Plan: continue her home Allopruinol Status: Chronic (6) Hypothyroidism Assessment and Plan: continue her home synthroid 137mcg. Status: Chronic (7) Herniated intervertebral disc of lumbar spine Assessment and Plan: Hold her Celebrex, will given pain Morphine 0.5 mg Q4H prn Status: Chronic (8) Hyperlipidemia Assessment and Plan: continue his home Gemfibrozil. Status: Acute (9) Prophylactic measure Assessment and Plan: Hold chemical VTE due to active bleeding SCDs Pepcid 20mg bid Status: Acute <Clyde Cardenas P - Last Filed: 03/02/17 06:22> Results - Vital Signs Recent Vital Signs: Last Vital Signs Temp 97.4 F L 03/02/17 00:00 Pulse 73 03/02/17 00:00 Resp 20 03/02/17 00:00 BP 159/73 H 03/02/17 00:00 Pulse Ox 97 03/02/17 01:09 - Labs Result Diagrams: 03/01/17 18:35 03/01/17 18:35 Labs: Laboratory Results - last 24 hr 03/01/17 03/01/17 03/01/17 17:30 18:35 18:35 WBC RBC Hgb Hct MCV MCH MCHC RDW Plt Count MPV Neut % (Auto) Lymph % (Auto) [place] % (Auto) Eos % (Auto) Baso % (Auto) Neut # Lymph # [place] # Eos # Baso # PT 11.7 INR 1.0 APTT 33 Sodium 139 Potassium 3.7 Chloride 107 Carbon Dioxide 23 Anion Gap 13 BUN 33 H Creatinine 1.2 Est GFR ( Amer) 51 Est GFR (Non-Af Amer) 42 Random Glucose 84 Calcium 9.4 Total Bilirubin 0.7 AST 68 H D ALT 57 H D Alkaline Phosphatase 282 H Total Protein 8.1 Albumin 3.7 Globulin 4.3 H Albumin/Globulin Ratio 0.9 L Urine Color Red Urine Clarity Turbid Urine pH 7.0 Ur Specific [place] 1.012 Urine Protein 3+ H Urine Glucose (UA) 1+ Urine Ketones 1+ H Urine Blood 3+ H Urine Nitrate Positive H Urine Bilirubin Negative Urine Urobilinogen 4.0 H Ur Leukocyte Esterase 2+ H Urine WBC (Auto) 315 H Urine RBC (Auto) 7015 H 03/01/17 18:35 WBC 10.5 RBC 3.51 L Hgb 10.4 L Hct 32.2 L MCV 91.8 MCH 29.7 MCHC 32.4 L RDW 15.1 H Plt Count 300 MPV 10.6 Neut % (Auto) 61.5 Lymph % (Auto) 27.3 [place] % (Auto) 5.8 Eos % (Auto) 4.9 H Baso % (Auto) 0.5 Neut # 6.4 Lymph # 2.9 [place] # 0.6 Eos # 0.5 Baso # 0.1 PT INR APTT Sodium Potassium Chloride Carbon Dioxide Anion Gap BUN Creatinine Est GFR ( Amer) Est GFR (Non-Af Amer) Random Glucose Calcium Total Bilirubin AST ALT Alkaline Phosphatase Total Protein Albumin Globulin Albumin/Globulin Ratio Urine Color Urine Clarity Urine pH Ur Specific [place] Urine Protein Urine Glucose (UA) Urine Ketones Urine Blood Urine Nitrate Urine Bilirubin Urine Urobilinogen Ur Leukocyte Esterase Urine WBC (Auto) Urine RBC (Auto) Attending/Attestation - Attestation I have personally seen and examined this patient.: Yes I have fully participated in the care of the patient.: Yes I have reviewed all pertinent clinical information: Yes Notes (Text): Assessment * Hematuria, with h/o bladder suspension with pessary and prior surgery, out patient treatment with macrobid, patient is on low dose asa. * H/o DJD spine, hypothyroid, gout, hyperlipidimia Plan * Empiric abx * wyman cath show now grossly bloody urine, culture/sensitivity * Urology consult * Temporary hold asa
[2017-03-02] MEDS: Levothyroxine 50 MCG TAB PO SCH (06:00)
[2017-03-02 07:50] LABS: BASO # 0.1 K/uL (0.0-0.2); EOS # 0.6 K/uL (0.0-0.7); EOS % 6.4 % (0.0-4.0); HEMOGLOBIN 9.9 g/dL (11.0-16.0); LYMPH # 3.1 K/uL (1.0-4.3); MEAN CELL VOLUME 90.4 fL (81.0-99.0); MEAN CORPUSCULAR HEMOGLOBIN 29.8 pg (27.0-31.0); MEAN CORPUSCULAR HGB CONC 32.9 g/dL (33.0-37.0); MEAN PLATELET VOLUME 9.7 fL (7.2-11.7); MONO # 0.5 K/uL (0.0-0.8); MONO % 5.6 % (0.0-10.0); NEUT # 5.3 K/uL (1.8-7.0); RBC 3.33 Mil/uL (3.80-5.20); WHITE BLOOD COUNT 9.7 K/uL (4.8-10.8)
--- NOTE | 2017-03-02 08:12 | RAD ---
PROCEDURE: CHEST RADIOGRAPH, 1 VIEW HISTORY: weakness COMPARISON: 05/05/2016 FINDINGS: LUNGS: Mild venous congestion. Biapical pleural thickening with upper lobe granulomatous changes. Mild bilateral hilar prominence. Calcification at the aortic knob. Mild patchy increased markings at the left lung base. Trace left pleural effusion. PLEURA: As above. CARDIOVASCULAR: Calcification at the aortic knob. OSSEOUS STRUCTURES: No significant abnormalities. VISUALIZED UPPER ABDOMEN: Normal. OTHER FINDINGS: None. IMPRESSION: Mild venous congestion. Biapical pleural thickening with upper lobe granulomatous changes. Mild bilateral hilar prominence. Calcification at the aortic knob. Mild patchy increased markings at the left lung base. Trace left pleural effusion.
[2017-03-02 08:32] LABS: ALB/GLOB RATIO 0.9 (1.0-2.1); ALBUMIN 3.2 g/dL (3.5-5.0); CALCIUM 9.2 mg/dl (8.6-10.4); MAGNESIUM 1.5 mg/dL (1.6-2.3)
[2017-03-02 08:59] LABS: HEPATITIS B SURFACE AG NEGATIVE (NEGATIVE)
[2017-03-02 09:05] LABS: HEPATITIS A IGM NEGATIVE (NEGATIVE); HEPATITIS B CORE AB Negative (NEGATIVE)
[2017-03-02 09:16] LABS: HEPATITIS C ANTIBODY Negative (NEGATIVE)
--- NOTE | 2017-03-02 09:32 | CP.PCM.PN ---
<Annie Adler - Last Filed: 03/02/17 15:14> Subjective - Date & Time of Evaluation Date of Evaluation: 03/02/17 Time of Evaluation: 10:00 - Subjective Subjective: Medicine Note for Hospitalist Service- Dr. Letty Parker Patient was seen and examined at bedside. She repeats she been having rose hematuria x 2 days, denied any associated pain. Admitted to weakness and fatigue. Denied fever, chills, headache, chest pain, SOB, abdominal pain, n/v/d / or c. Objective - Vital Signs/Intake and Output Vital Signs (last 24 hours): Temp Pulse Resp BP Pulse Ox 98.2 F 76 20 159/68 H 97 03/02/17 07:46 03/02/17 07:46 03/02/17 07:46 03/02/17 07:46 03/02/17 07:46 Intake and Output: 03/02/17 03/02/17 06:59 18:59 Intake Total 240 Output Total 650 Balance -410 - Medications Medications: Current Medications Allopurinol (Zyloprim) 300 mg PO DAILY [facility] Famotidine (Pepcid) 20 mg PO BID [facility] Gemfibrozil (Lopid) 600 mg PO BID [facility] Last Admin: 03/01/17 20:15 Dose: 600 mg Ceftriaxone Sodium 1 gm/ (Sodium Chloride) 100 mls @ 100 mls/hr IVPB DAILY [facility] Levothyroxine Sodium (Synthroid) 50 mcg PO DAILY@0630 [facility] Last Admin: 03/02/17 06:00 Dose: 50 mcg Pneumococcal Polyvalent Vaccine (Pneumovax 23 Vaccine) 0.5 ml IM .ONCE ONE Stop: 03/04/17 10:01 - Labs Labs: 03/02/17 07:41 03/02/17 07:41 PT 11.7 SECONDS (9.7-12.2) 03/01/17 18:35 INR 1.0 03/01/17 18:35 APTT 33 SECONDS (21-34) 03/01/17 18:35 - Additional Findings Additional findings: - Constitutional Appears: Non-toxic, No Acute Distress - Eye Exam Eye Exam: Normal appearance, PERRL. absent: Scleral icterus Pupil Exam: NORMAL ACCOMODATION - Respiratory Exam Respiratory Exam: Clear to Auscultation Bilateral. absent: Rales, Rhonchi, Wheezes - Cardiovascular Exam Cardiovascular Exam: REGULAR RHYTHM, RRR, +S1, +S2. absent: Gallop, Rubs - GI/Abdominal Exam GI & Abdominal Exam: Normal Bowel Sounds, Soft. absent: Distended, Guarding, Rebound, Tenderness - Exam External exam: wyman in place - Extremities Exam Extremities exam: Positive for: normal inspection, tenderness. Negative for: pedal edema Additional comments: varicose veins present - Back Exam Back exam: NORMAL INSPECTION. absent: CVA tenderness (L), CVA tenderness (R) - Neurological Exam Neurological exam: Oriented x3 - Psychiatric Exam Psychiatric exam: Normal Affect, Normal Mood - Skin Skin Exam: Dry, Pallor, Warm Assessment and Plan - Assessment and Plan (Free Text) Plan: Rose Hematuria Assessment and Plan: Urology consulted - Dr. Shahnaz Walker - help appreciated Hold her Aspirin and VTE prophylaxis Monitor her hemoglobin UTI Assessment and Plan: Labs: UA shows Nitrate, 315 WBCS, Luecocyte esterase, +3 protein. F/U UC Medications: Started on Rocephin 1 gram IVP daily - pending UC for sensitivities Anemia Assessment and Plan: Hbg is 10.3 Type and Screened, will transfuse as needed Vaginal prolapse Assessment and Plan: She has a pessarry Gout Assessment and Plan: Continue her home Allopruinol Hypothyroidism Assessment and Plan: Continue her home synthroid 137mcg Herniated intervertebral disc of lumbar spine Assessment and Plan: Hold her Celebrex, will given pain Morphine 0.5 mg Q4H prn Hyperlipidemia Assessment and Plan: Continue his home Gemfibrozil Prophylactic measure Assessment and Plan: Hold chemical VTE due to active bleeding, SCDs Pepcid 20mg bid As per patient and daughter Mariana she has a POLST filled out at home - DNR/ DNI - asked daughter or mission assessment specialist to bring a copy in [facility] Nayely Calvert DO, PGY-1 <Travis Parker - Last Filed: 03/02/17 16:25> Objective - Vital Signs/Intake and Output Vital Signs (last 24 hours): Temp Pulse Resp BP Pulse Ox 98.2 F 76 20 159/68 H 97 03/02/17 07:46 03/02/17 07:46 03/02/17 07:46 03/02/17 07:46 03/02/17 07:46 Intake and Output: 03/02/17 03/02/17 06:59 18:59 Intake Total 240 1075 Output Total 650 1180 Balance -410 -105 - Medications Medications: Current Medications Allopurinol (Zyloprim) 300 mg PO DAILY [facility] Last Admin: 03/02/17 09:59 Dose: 300 mg Famotidine (Pepcid) 20 mg PO BID [facility] Last Admin: 03/02/17 09:57 Dose: 20 mg Gemfibrozil (Lopid) 600 mg PO BID [facility] Last Admin: 03/02/17 09:57 Dose: 600 mg Ceftriaxone Sodium 1 gm/ (Sodium Chloride) 100 mls @ 100 mls/hr IVPB DAILY [facility] Last Admin: 03/02/17 09:58 Dose: 100 mls/hr Sodium Chloride (Sodium Chloride 0.9%) 1,000 mls @ 125 mls/hr IV .Q8H [facility] Levothyroxine Sodium (Synthroid) 50 mcg PO DAILY@0630 [facility] Last Admin: 03/02/17 06:00 Dose: 50 mcg Pneumococcal Polyvalent Vaccine (Pneumovax 23 Vaccine) 0.5 ml IM .ONCE ONE Stop: 03/04/17 10:01 - Labs Labs: 03/02/17 07:41 03/02/17 07:41 PT 11.7 SECONDS (9.7-12.2) 03/01/17 18:35 INR 1.0 03/01/17 18:35 APTT 33 SECONDS (21-34) 03/01/17 18:35 Attending/Attestation - Attestation I have personally seen and examined this patient.: Yes I have fully participated in the care of the patient.: Yes I have reviewed all pertinent clinical information, including history, physical exam and plan: Yes Notes (Text): 03/02/17 16:25 Medical attending: Patient was seen and examined by me, agree with the above note by medical imaging technician. This is a very pleasant 78-year-old female, she is relatively good historian as well. She is here due to concerns over having rose hematuria for a few days now. The hemoglobin is currently stable at this time however work and continue to monitor this. For now, hold aspirin, and avoid heparin and Lovenox for the time being. As documented above the resident note the patient had a lot of hematuria on urinalysis. She currently has a Wyman catheter and on her physical exam there is a lot of dark blood color and it. Per talking to the patient she explains to us that she believes she's lost close to 50 pounds over the past year explained to her that this is a very substantial change and because of hematuria order get additional imaging abdomen and pelvis done. She did have imaging done back in December of this year however it was done without contrast Is this ongoing hematuria as well as weight loss, will need to have urology evaluaiton. Thank you very much, Travis Parker
[2017-03-02] MEDS ORDERED: Sodium Chloride 0.9% 1,000 ML IV SCH (09:45)
[2017-03-02] MEDS ORDERED: Iodixanol 320 MG/ML 100 ML BOTTLE IV ONE (12:58)
--- NOTE | 2017-03-02 17:04 | CT ---
Procedure CT Abdomen and Pelvis with and without intravenous contrast History rose hematuria Comparison: CT of the abdomen and pelvis without contrast performed 01/09/17 Technique Axial images of the abdomen were obtained in the pre contrast, portal venous and delayed phases of enhancement. Coronal and sagittal reformats were generated and reviewed. Contrast dose: 100 cc Visipaque Radiation dose: Total exam DLP = 2310.56 mGy-cm. This CT exam was performed using one or more of the following dose reduction techniques: Automated exposure control, adjustment of the mA and/or kV according to patient size, and/or use of iterative reconstruction technique. Findings Lower thorax Mild bibasilar atelectasis. No visible pleural effusion or pneumothorax. Dense atherosclerotic calcifications including coronary arteries and mitral annulus calcification. Trace pericardial effusion. Liver Numerous too small to characterize hepatic hypodensities, statistically likely cysts or hemangiomas. Gallbladder and bile ducts Cholelithiasis. Pancreas Fatty atrophy of the pancreas. Spleen Unremarkable. Adrenals Bilateral adrenal gland hypertrophy. Kidneys and ureters The kidneys enhance symmetrically. No hydronephrosis or obstructing calculus identified. Duplicated left renal collecting system. Bilateral hypo dense renal lesions likely cysts. Additional 8 mm partially exophytic left upper pole hyperdense lesion, indeterminate. Vasculature Extensive dense atherosclerotic calcifications of the aorta and branches. No aortic aneurysm. Bowel Stomach is nondistended and contains ingested debris. Lack of oral contrast limits evaluation for bowel pathology. Bowel loops appear within normal limits of caliber without evidence of obstruction. Extensive diverticulosis without CT evidence of acute diverticulitis. Appendix The appendix is not identified. No secondary signs of acute appendicitis. Peritoneum No significant free fluid. No definite free air. Lymph nodes No bulky adenopathy identified. Bladder Pessary. Air noted within the decompressed urinary bladder which contains a Lopez catheter; air is suspected secondary to recent instrumentation. Probable posterior left diverticulum arising from the superior aspect of the urinary bladder. Evidence of filling defect within the left and right dependent portions of the urinary bladder ; considerations include but not limited to neoplasm, hematoma, debris. Reproductive Not well-visualized. Bones Right hip arthroplasty with extensive streak artifact. Chronic compression fracture deformities lower lumbar spine, L3 and L4. Other Findings Fat containing umbilical hernia. Impression: Extensive streak artifact emanates from right hip arthroplasty limiting evaluation of the pelvis. Pessary. Air noted within the decompressed urinary bladder which contains a Lopez catheter; air is suspected secondary to recent instrumentation. Probable posterior left diverticulum arising from the superior aspect of the urinary bladder. Evidence of filling defect within the left and right dependent portions of the urinary bladder ; considerations include but not limited to neoplasm, hematoma, debris. Recommend correlation with urinalysis and suggest correlation with cystoscopy if indicated. Duplicated left renal collecting system. Bilateral hypo dense renal lesions likely cysts. Additional 8 mm partially exophytic left upper pole hyperdense lesion, indeterminate. Numerous too small to characterize hepatic hypodensities, statistically likely cysts or hemangiomas. Cholelithiasis. Additional findings as above.
--- NOTE | 2017-03-02 20:57 | CARD ---
APPROVED REPORT EKG Measurement Heart [id number] CT 148P-22 [id number] <Conclusion> Normal sinus rhythm Normal ECG
[2017-03-02] MEDS: Sodium Chloride 0.9% 1,000 ML IV SCH (22:02)
[2017-03-03] MEDS: Sodium Chloride 0.9% 1,000 ML IV SCH ×2 (03:46→11:27)
[2017-03-03] MEDS: Levothyroxine 50 MCG TAB PO SCH (05:57)
[2017-03-03 07:33] LABS: BASO # 0.1 K/uL (0.0-0.2); EOS # 0.7 K/uL (0.0-0.7); HEMOGLOBIN 9.7 g/dL (11.0-16.0); MONO # 0.6 K/uL (0.0-0.8); MONO % 4.7 % (0.0-10.0); NEUT % 54.8 % (50.0-75.0)
[2017-03-03 07:46] LABS: BASO % 0.9 % (0.0-2.0); EOS % 5.4 % (0.0-4.0); LYMPH # 4.5 K/uL (1.0-4.3); LYMPH % 34.2 % (20.0-40.0); MEAN CELL VOLUME 91.2 fL (81.0-99.0); MEAN CORPUSCULAR HEMOGLOBIN 29.7 pg (27.0-31.0); MEAN CORPUSCULAR HGB CONC 32.6 g/dL (33.0-37.0); MEAN PLATELET VOLUME 10.1 fL (7.2-11.7); NEUT # 7.2 K/uL (1.8-7.0); NRBC % 0.1 % (0.0-2.0); RBC 3.27 Mil/uL (3.80-5.20); RED CELL DISTRIBUTION WIDTH 14.9 % (11.5-14.5); WHITE BLOOD COUNT 13.1 K/uL (4.8-10.8)
--- NOTE | 2017-03-03 07:50 | CP.PCM.PCO ---
Physician Communication Note - Physician Communication Note Physician Communication Note: Patient is medically stable for cystoscopy.
[2017-03-03 08:28] LABS: ALB/GLOB RATIO 1.2 (1.0-2.1); ALBUMIN 3.1 g/dL (3.5-5.0); MAGNESIUM 1.4 mg/dL (1.6-2.3)
[2017-03-03] MEDS: POLYETHYLENE GLYCOL 3350 17 GM/Dose PACKET PO SCH (09:47)
[2017-03-03] MEDS ORDERED: Magnesium Sulfate 1 gm in D5W 1 GM/100 ML BAG IVPB ONE (10:00)
--- NOTE | 2017-03-03 12:25 | CP.PCM.PN ---
<Annie Adler - Last Filed: 03/03/17 12:12> Subjective - Date & Time of Evaluation Date of Evaluation: 03/03/17 Time of Evaluation: 09:00 - Subjective Subjective: Medicine Note for Hospitalist Service- Dr. Letty Parker Patient was seen and examined at bedside. Patient reports she feels okay, not better or worse. Admitted to some weakness and fatigue. Denied fever, chills, headache, chest pain, SOB, abdominal pain, n/v/d/ or c. Objective - Vital Signs/Intake and Output Vital Signs (last 24 hours): Temp Pulse Resp BP Pulse Ox 98.1 F 73 20 172/75 H 95 03/03/17 08:00 03/03/17 08:00 03/03/17 08:00 03/03/17 08:00 03/03/17 08:00 Intake and Output: 03/03/17 03/03/17 06:59 18:59 Intake Total 2580 Output Total 200 Balance 2380 - Medications Medications: Current Medications Allopurinol (Zyloprim) 300 mg PO DAILY [facility] Last Admin: 03/03/17 09:47 Dose: 300 mg Famotidine (Pepcid) 20 mg PO BID [facility] Last Admin: 03/03/17 09:49 Dose: 20 mg Gemfibrozil (Lopid) 600 mg PO BID [facility] Last Admin: 03/03/17 09:48 Dose: 600 mg Ceftriaxone Sodium 1 gm/ (Sodium Chloride) 100 mls @ 100 mls/hr IVPB DAILY [facility] Last Admin: 03/03/17 10:58 Dose: 100 mls/hr Sodium Chloride (Sodium Chloride 0.9%) 1,000 mls @ 125 mls/hr IV .Q8H [facility] Last Admin: 03/03/17 11:27 Dose: Not Given Levothyroxine Sodium (Synthroid) 50 mcg PO DAILY@0630 [facility] Last Admin: 03/03/17 05:57 Dose: 50 mcg Pneumococcal Polyvalent Vaccine (Pneumovax 23 Vaccine) 0.5 ml IM .ONCE ONE Stop: 03/04/17 10:01 Polyethylene Glycol (Miralax) 17 gm PO DAILY [facility] Stop: 03/04/17 10:01 Last Admin: 03/03/17 09:47 Dose: 17 gm - Labs Labs: 03/03/17 07:10 03/03/17 07:10 PT 11.7 SECONDS (9.7-12.2) 03/01/17 18:35 INR 1.0 03/01/17 18:35 APTT 33 SECONDS (21-34) 03/01/17 18:35 - Additional Findings Additional findings: - Constitutional Appears: Non-toxic, No Acute Distress - Eye Exam Eye Exam: Normal appearance, PERRL. absent: Scleral icterus Pupil Exam: NORMAL ACCOMODATION - Respiratory Exam Respiratory Exam: Clear to Auscultation Bilateral. absent: Rales, Rhonchi, Wheezes - Cardiovascular Exam Cardiovascular Exam: REGULAR RHYTHM, RRR, +S1, +S2. absent: Gallop, Rubs - GI/Abdominal Exam GI & Abdominal Exam: Normal Bowel Sounds, Soft. absent: Distended, Guarding, Rebound, Tenderness - Exam External exam: wyman in place - Extremities Exam Extremities exam: Positive for: normal inspection, tenderness. Negative for: pedal edema Additional comments: varicose veins present - Back Exam Back exam: NORMAL INSPECTION. absent: CVA tenderness (L), CVA tenderness (R) - Neurological Exam Neurological exam: Oriented x3 - Psychiatric Exam Psychiatric exam: Normal Affect, Normal Mood - Skin Skin Exam: Dry, Pallor, Warm Assessment and Plan - Assessment and Plan (Free Text) Plan: Rio Hematuria Assessment and Plan: Urology consulted - Dr. Shahnaz Walker - help appreciated Hold her Aspirin and VTE prophylaxis Monitor her hemoglobin- remains stable - continue to monitor Cystoscopy scheduled for tomorrow with Dr. Shahnaz Walker - NPO past midnight UTI Assessment and Plan: Labs: UA shows Nitrate, 315 WBCS, Luecocyte esterase, +3 protein. F/U UC - Proteus - sensitive to rocephin and Cipro - we will repeat urine culture in 1-2 days Medications: Started on Rocephin 1 gram IVP daily - 03/02/17 Anemia Assessment and Plan: Hbg is 10.3 Type and Screened, will transfuse as needed Vaginal prolapse Assessment and Plan: She has a pessarry Gout Assessment and Plan: Continue her home Allopruinol Hypothyroidism Assessment and Plan: Continue her home Synthroid 137mcg Herniated intervertebral disc of lumbar spine Assessment and Plan: Hold her Celebrex, will given pain Morphine 0.5 mg Q4H prn Hyperlipidemia Assessment and Plan: Continue his home Gemfibrozil Prophylactic measure Assessment and Plan: Hold chemical VTE due to active bleeding, SCDs Pepcid 20mg bid As per patient and daughter Mariana she has a POLST filled out at home - DNR- copy was placed in chart Mariana (daughter) [phone] Parker, Nayely GOLDMAN, PGY-1 <Travis Parker H - Last Filed: 03/03/17 14:08> Objective - Vital Signs/Intake and Output Vital Signs (last 24 hours): Temp Pulse Resp BP Pulse Ox 98.1 F 73 20 152/75 H 95 03/03/17 08:00 03/03/17 12:35 03/03/17 08:00 03/03/17 12:35 03/03/17 12:35 Intake and Output: 03/03/17 03/03/17 06:59 18:59 Intake Total 2580 Output Total 200 300 Balance 2380 -300 - Medications Medications: Current Medications Allopurinol (Zyloprim) 300 mg PO DAILY [facility] Last Admin: 03/03/17 09:47 Dose: 300 mg Famotidine (Pepcid) 20 mg PO BID [facility] Last Admin: 03/03/17 09:49 Dose: 20 mg Gemfibrozil (Lopid) 600 mg PO BID [facility] Last Admin: 03/03/17 09:48 Dose: 600 mg Ceftriaxone Sodium 1 gm/ (Sodium Chloride) 100 mls @ 100 mls/hr IVPB DAILY [facility] Last Admin: 03/03/17 10:58 Dose: 100 mls/hr Levothyroxine Sodium (Synthroid) 50 mcg PO DAILY@0630 [facility] Last Admin: 03/03/17 05:57 Dose: 50 mcg Pneumococcal Polyvalent Vaccine (Pneumovax 23 Vaccine) 0.5 ml IM .ONCE ONE Stop: 03/04/17 10:01 Polyethylene Glycol (Miralax) 17 gm PO DAILY [facility] Stop: 03/04/17 10:01 Last Admin: 03/03/17 09:47 Dose: 17 gm - Labs Labs: 03/03/17 07:10 03/03/17 07:10 PT 11.7 SECONDS (9.7-12.2) 03/01/17 18:35 INR 1.0 03/01/17 18:35 APTT 33 SECONDS (21-34) 03/01/17 18:35 Attending/Attestation - Attestation I have personally seen and examined this patient.: Yes I have fully participated in the care of the patient.: Yes I have reviewed all pertinent clinical information, including history, physical exam and plan: Yes Notes (Text): 03/03/17 14:08 Medical attending: Patient was seen and examined by me, agrees the above note by medical interpreter. She is medically cleared for cytocsopy. The patient was moved to the room today. She said she did not sleep well that it 's very noisy. She was happier with the previous room. Per inspection of her Wyman catheter, the bag unfortunately still has very dark colored tinge to it. I don't readily see any clots in it. And from what I understand it had to be changed overnight. She also underwent a CT scan of the abdomen and pelvis yesterday the results of which showed that there may be a filling defect in the left and right upper portions of the bladder. The report suggested that there be a hematoma, neoplasm, or possible debris Urology is plan for cystoscopy sometime tomorrow. The patient is medically cleared for this. I looked over her EKG, and this is normal sinus rhythm, her chest x-ray is also stable as well. Her lab work is also stable for the past few days. She does have some anemia however does not need a blood transfusion at this time. thank you very much, Travis Parker
--- NOTE | 2017-03-03 15:30 | CP.PCM.PCO ---
Physician Communication Note - Physician Communication Note Physician Communication Note: Please see additional comments. Additional Comments - Additional Comments Additional Comments: As per Anesthesia, DNR suspended during OR. Patient consented. Code status will be resumed after OR. Spoke to Courtney CARRANZA - who retrieved consent from the patient and placed it in the patient's chart. Annie Adler DO, PGY-1
[2017-03-04 06:03] LABS: BASO # 0.1 K/uL (0.0-0.2); BASO % 1.1 % (0.0-2.0); EOS # 0.5 K/uL (0.0-0.7); EOS % 4.9 % (0.0-4.0); HEMOGLOBIN 10.4 g/dL (11.0-16.0); LYMPH % 40.2 % (20.0-40.0); MEAN CELL VOLUME 91.2 fL (81.0-99.0); MEAN CORPUSCULAR HEMOGLOBIN 29.9 pg (27.0-31.0); MEAN CORPUSCULAR HGB CONC 32.8 g/dL (33.0-37.0); MEAN PLATELET VOLUME 9.4 fL (7.2-11.7); MONO # 0.5 K/uL (0.0-0.8); MONO % 5.1 % (0.0-10.0); NEUT # 4.9 K/uL (1.8-7.0); NEUT % 48.7 % (50.0-75.0); RBC 3.48 Mil/uL (3.80-5.20); RED CELL DISTRIBUTION WIDTH 14.6 % (11.5-14.5)
[2017-03-04 06:18] LABS: ALBUMIN 3.4 g/dL (3.5-5.0); CALCIUM 8.9 mg/dl (8.6-10.4); MAGNESIUM 1.6 mg/dL (1.6-2.3)
[2017-03-04 06:51] LABS: ALB/GLOB RATIO 1.1 (1.0-2.1)
[2017-03-04] MEDS: Levothyroxine 50 MCG TAB PO SCH (07:13)
--- NOTE | 2017-03-04 07:27 | CP.PCM.PN ---
Subjective - Date & Time of Evaluation Date of Evaluation: 03/04/17 Time of Evaluation: 07:00 - Subjective Subjective: Medicine Note for Hospitalist Service- Dr. Letty Parker Patient was seen and examined at bedside. No acute complaints. Patient is NPO, for cystoscopy today. Denied fever, chills, headache, chest pain, SOB, abdominal pain, n/v/d/ or c. Objective - Vital Signs/Intake and Output Vital Signs (last 24 hours): Temp Pulse Resp BP Pulse Ox 98 F 76 20 163/80 H 95 03/04/17 00:00 03/04/17 00:00 03/04/17 00:00 03/04/17 00:00 03/04/17 00:00 Intake and Output: 03/04/17 03/04/17 06:59 18:59 Intake Total 250 Output Total 1710 Balance -1460 - Medications Medications: Current Medications Allopurinol (Zyloprim) 300 mg PO DAILY [facility] Last Admin: 03/03/17 09:47 Dose: 300 mg Famotidine (Pepcid) 20 mg PO BID [facility] Last Admin: 03/03/17 17:45 Dose: 20 mg Gemfibrozil (Lopid) 600 mg PO BID [facility] Last Admin: 03/03/17 17:45 Dose: 600 mg Ceftriaxone Sodium 1 gm/ (Sodium Chloride) 100 mls @ 100 mls/hr IVPB DAILY [facility] Last Admin: 03/03/17 10:58 Dose: 100 mls/hr Levothyroxine Sodium (Synthroid) 50 mcg PO DAILY@0630 [facility] Last Admin: 03/04/17 07:13 Dose: Not Given Pneumococcal Polyvalent Vaccine (Pneumovax 23 Vaccine) 0.5 ml IM .ONCE ONE Stop: 03/04/17 10:01 Polyethylene Glycol (Miralax) 17 gm PO DAILY [facility] Stop: 03/04/17 10:01 Last Admin: 03/03/17 09:47 Dose: 17 gm - Labs Labs: 03/04/17 05:59 03/04/17 05:59 PT 11.7 SECONDS (9.7-12.2) 03/01/17 18:35 INR 1.0 03/01/17 18:35 APTT 33 SECONDS (21-34) 03/01/17 18:35 - Additional Findings Additional findings: - Constitutional Appears: Non-toxic, No Acute Distress - Eye Exam Eye Exam: Normal appearance, PERRL. absent: Scleral icterus Pupil Exam: NORMAL ACCOMODATION - Respiratory Exam Respiratory Exam: Clear to Auscultation Bilateral. absent: Rales, Rhonchi, Wheezes - Cardiovascular Exam Cardiovascular Exam: REGULAR RHYTHM, RRR, +S1, +S2. absent: Gallop, Rubs - GI/Abdominal Exam GI & Abdominal Exam: Normal Bowel Sounds, Soft. absent: Distended, Guarding, Rebound, Tenderness - Exam External exam: wyman in place - Extremities Exam Extremities exam: Positive for: normal inspection, tenderness. Negative for: pedal edema Additional comments: varicose veins present - Back Exam Back exam: NORMAL INSPECTION. absent: CVA tenderness (L), CVA tenderness (R) - Neurological Exam Neurological exam: Oriented x3 - Psychiatric Exam Psychiatric exam: Normal Affect, Normal Mood - Skin Skin Exam: Dry, Pallor, Warm Assessment and Plan - Assessment and Plan (Free Text) Plan: [place] Hematuria Assessment and Plan: Urology consulted - Dr. Shahnaz Walker - help appreciated Hold her Aspirin and VTE prophylaxis Monitor her hemoglobin- remains stable - continue to monitor Cystoscopy scheduled for today with Dr. Shahnaz Walker - recommend to keep wyman in place and revenue stamp cutter consult UTI Assessment and Plan: Labs: UA shows Nitrate, 315 WBCS, Luecocyte esterase, +3 protein. F/U UC - Proteus - sensitive to rocephin and Cipro - we will repeat urine culture Medications: Started on Rocephin 1 gram IVP daily - 03/02/17 Anemia Assessment and Plan: Hbg is stable Type and Screened, will transfuse as needed Vaginal prolapse Assessment and Plan: She has a pessarry Gout Assessment and Plan: Continue her home Allopruinol Hypothyroidism Assessment and Plan: Continue her home Synthroid 137mcg Herniated intervertebral disc of lumbar spine Assessment and Plan: Hold her Celebrex, will given pain Morphine 0.5 mg Q4H prn Hyperlipidemia Assessment and Plan: Continue his home Gemfibrozil Prophylactic measure Assessment and Plan: Hold chemical VTE due to active bleeding, SCDs Pepcid 20mg bid As per patient and daughter Mariana she has a POLST filled out at home - DNR- copy was placed in chart Mariana (daughter) [phone] DW Nayely Calvert DO, PGY-1
[2017-03-04] MEDS ORDERED: Propofol 10 mg/ml Inj (20 ML) ONE (08:58)
[2017-03-04] MEDS ORDERED: Iohexol 240 (50 ml) ONE (09:22)
[2017-03-04] MEDS ORDERED: Influenza Vaccine 60 mcg/0.5 mL SYR (4YR UP) IM ONE (10:00)
[2017-03-04] MEDS ORDERED: Pneumococcal 23-Valent Vaccine IM ONE (10:00)
--- NOTE | 2017-03-04 10:06 | PCM.URO ---
Urology Progress Note - Objective Lab Studies: Reviewed (see cysto note plans : wyman and sample patternmaker consult) Lab Results Last 24 Hours: Laboratory Results - last 24 hr 03/04/17 03/04/17 05:59 05:59 WBC 10.0 RBC 3.48 L Hgb 10.4 L Hct 31.7 L MCV 91.2 MCH 29.9 MCHC 32.8 L RDW 14.6 H Plt Count 283 MPV 9.4 Neut % (Auto) 48.7 L Lymph % (Auto) 40.2 H Cris[place] % (Auto) 5.1 Eos % (Auto) 4.9 H Baso % (Auto) 1.1 Neut # 4.9 Lymph # 4.0 Crisp # 0.5 Eos # 0.5 Baso # 0.1 Sodium 140 Potassium 3.9 Chloride 108 H Carbon Dioxide 24 Anion Gap 12 BUN 24 H Creatinine 1.2 Est GFR ( Amer) 51 Est GFR (Non-Af Amer) 42 Random Glucose 98 Calcium 8.9 Phosphorus 3.8 Magnesium 1.6 Total Bilirubin 0.5 AST 24 ALT 42 Alkaline Phosphatase 195 H Total Protein 6.4 Albumin 3.4 L Globulin 3.0 Albumin/Globulin Ratio 1.1 Intake & Output: Intake & Output 03/03/17 03/04/17 03/04/17 18:59 06:59 18:59 Intake Total 500 250 200 Output Total 300 1710 Balance 200 -1460 200 Intake: IV 200 Intake, IV Amount 100 Left Hand 100 Oral 400 250 Output: Urine 300 1710 Urethral (Wyman) 300 1710 Other: # Bowel Movements 0 1 Vital Signs: Vital Signs - 24 hr 03/03/17 03/03/17 03/04/17 12:35 15:25 00:00 Temperature 98.2 F 98 F Pulse Rate 73 65 76 Respiratory 20 20 Rate Blood Pressure 152/75 H 155/64 H 163/80 H O2 Sat by Pulse 95 95 95 Oximetry 03/04/17 03/04/17 03/04/17 07:30 08:05 09:38 Temperature 98.2 F 98 F 98.7 F Pulse Rate 65 65 75 Respiratory 20 20 15 Rate Blood Pressure 143/82 162/74 H 163/64 H O2 Sat by Pulse 96 98 96 Oximetry 03/04/17 09:50 Temperature Pulse Rate 68 Respiratory 13 Rate Blood Pressure 164/61 H O2 Sat by Pulse 98 Oximetry
[2017-03-04] MEDS: POLYETHYLENE GLYCOL 3350 17 GM/Dose PACKET PO SCH (12:12)
[2017-03-04 16:50] VITALS: RESP 20
--- NOTE | 2017-03-04 17:03 | RAD ---
PROCEDURE: Retrograde urography bilateral HISTORY: HEMATURIA COMPARISON: CT abdomen and pelvis 05/05/2016 and 03/02/2017 CT. TECHNIQUE: Please see Dr Walker's notes FINDINGS: CT abdomen and pelvis 05/05/2016 and 03/02/2017 CT. On the crew manager image an approximately 5 to 6 mm calcification projects over the right L1 transverse process, medial to the large gallstones within the gallbladder. Correlating this with the CTs- this 5- 6 mm calcification is present on axial series 3, image 53 and also seen on the current 03/02/2017 exam. Although this calcification in close proximity with the extrahepatic bile ducts, no intrahepatic bile duct dilatation is suggested as would be likely if present in the extrahepatic bile ducts - given its size. The calcification is not within the right kidney. It may represent a calcified lymph node. It is right lateral to the splenic vein -portal vein confluence. It does not appear to be within the pancreatic head either. Right hip prosthesis and cystoscope partially visualized on crew manager image. Splenic artery vascular calcifications also noted. Moderate left and right colonic stool retention present. Infusion of contrast per cystoscope shows partially visualized opacified bilateral ureters. The lucency in the proximal left ureteral pelvic junction may represent an air bubble. The left more peripheral calices are either underdistended and or are blunted. Some left ureteropelvic kinking at the air bubble site left ureteropelvic junction is also suggested. The mid 1/3 left ureteral segment has tiny less than 5 mm talc chains consistent with ureteral pseudo diverticulosis. There is less contrast density in the contralateral similar right ureteral level to comment if it is present here is well. The right pelvicaliceal system is rotated but otherwise unremarkable. The right ureter is segmentally visualized. No dilatation or are caliber irregularity suggested. IMPRESSION: No high-grade obstruction appreciated. . 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
[2017-03-05] MEDS: Levothyroxine 50 MCG TAB PO SCH (05:59)
[2017-03-05 08:29] LABS: BASO # 0.1 K/uL (0.0-0.2); BASO % 1.1 % (0.0-2.0); EOS # 0.4 K/uL (0.0-0.7); EOS % 4.3 % (0.0-4.0); LYMPH # 4.2 K/uL (1.0-4.3); MEAN CELL VOLUME 91.5 fL (81.0-99.0); MEAN CORPUSCULAR HEMOGLOBIN 29.9 pg (27.0-31.0); MEAN CORPUSCULAR HGB CONC 32.7 g/dL (33.0-37.0); MEAN PLATELET VOLUME 9.9 fL (7.2-11.7); MONO # 0.4 K/uL (0.0-0.8); MONO % 3.7 % (0.0-10.0); NEUT # 5.1 K/uL (1.8-7.0); NEUT % 49.9 % (50.0-75.0); RBC 3.35 Mil/uL (3.80-5.20); RED CELL DISTRIBUTION WIDTH 14.5 % (11.5-14.5); WHITE BLOOD COUNT 10.2 K/uL (4.8-10.8)
[2017-03-05 08:51] LABS: ALB/GLOB RATIO 0.8 (1.0-2.1); ALBUMIN 3.4 g/dL (3.5-5.0); CALCIUM 8.9 mg/dl (8.6-10.4); MAGNESIUM 1.7 mg/dL (1.6-2.3)
--- NOTE | 2017-03-05 13:52 | PCM.URO ---
Urology Progress Note - General General: No Complaints - Subjective Abdominal Pain: No Flank Pain: No Nausea: No Vomiting: No Hematuria: Yes (mild. pink in tubing) Dsypnea: No Chest Pain: No Fever & Chills: No - Objective Lab Results Last 24 Hours: Laboratory Results - last 24 hr 03/05/17 03/05/17 08:21 08:21 WBC 10.2 RBC 3.35 L Hgb 10.0 L Hct 30.7 L MCV 91.5 MCH 29.9 MCHC 32.7 L RDW 14.5 Plt Count 308 MPV 9.9 Neut % (Auto) 49.9 L Lymph % (Auto) 41.[address] [place] % (Auto) 3.7 Eos % (Auto) 4.3 H Baso % (Auto) 1.1 Neut # 5.1 Lymph # 4.2 [place] # 0.4 Eos # 0.4 Baso # 0.1 Sodium 138 Potassium 4.6 Chloride 106 Carbon Dioxide 29 Anion Gap 7 L BUN 27 H Creatinine 1.2 Est GFR ( Amer) 51 Est GFR (Non-Af Amer) 42 Random Glucose 95 Calcium 8.9 Phosphorus 4.3 Magnesium 1.7 Total Bilirubin 0.5 AST 25 ALT 44 Alkaline Phosphatase 173 H Total Protein 7.4 Albumin 3.4 L Globulin 4.1 H Albumin/Globulin Ratio 0.8 L Intake & Output: Intake & Output 03/04/17 03/05/17 03/05/17 18:59 06:59 18:59 Intake Total 275 600 Output Total 55 850 Balance 220 -250 Intake: IV 275 Oral 600 Output: Urine 55 850 Urethral (Wyman) 850 Other: # Bowel Movements 0 Vital Signs: Vital Signs - 24 hr 03/04/17 03/05/17 03/05/17 16:00 00:00 08:43 Temperature 98.1 F 98.4 F 98.1 F Pulse Rate 70 70 77 Respiratory 20 20 20 Rate Blood Pressure 134/66 127/60 157/73 H O2 Sat by Pulse 98 96 95 Oximetry - Physical Exam Abdominal Exam: Soft, Non-Tender, Non-Distended Back: No CVA Tenderness Urinary Catheter Draining Well: Yes Urine Color: Kathleen - Plan Additional Information: Imp: stable p cysto. UTI - proteus. Prob hemorrhagic cystitis. P: antibiotic rx. wyman cath in place. trial of voiding t/f - Date & Time of Note Date: 03/05/17 Time: 11:55
--- NOTE | 2017-03-05 15:49 | CP.PCM.PN ---
<Annie Adler - Last Filed: 03/05/17 15:43> Subjective - Date & Time of Evaluation Date of Evaluation: 03/05/17 Time of Evaluation: 10:00 - Subjective Subjective: Medicine Note for Hospitalist Service- Dr. Letty Parker Patient was seen and examined at bedside. No acute complaints. Denied fever, chills, headache, chest pain, SOB, abdominal pain, n/v/d/ or c. Objective - Vital Signs/Intake and Output Vital Signs (last 24 hours): Temp Pulse Resp BP Pulse Ox 98.1 F 77 20 157/73 H 95 03/05/17 08:43 03/05/17 08:43 03/05/17 08:43 03/05/17 08:43 03/05/17 08:43 Intake and Output: 03/05/17 03/05/17 06:59 18:59 Intake Total 600 550 Output Total 850 600 Balance -250 -50 - Medications Medications: Current Medications Allopurinol (Zyloprim) 300 mg PO DAILY [facility] Last Admin: 03/05/17 11:17 Dose: 300 mg Famotidine (Pepcid) 20 mg PO BID [facility] Last Admin: 03/05/17 11:17 Dose: 20 mg Gemfibrozil (Lopid) 600 mg PO BID [facility] Last Admin: 03/05/17 11:17 Dose: 600 mg Ceftriaxone Sodium 1 gm/ (Sodium Chloride) 100 mls @ 100 mls/hr IVPB DAILY [facility] Last Admin: 03/05/17 11:18 Dose: 100 mls/hr Levothyroxine Sodium (Synthroid) 50 mcg PO DAILY@0630 [facility] Last Admin: 03/05/17 05:59 Dose: 50 mcg - Labs Labs: 03/05/17 08:21 03/05/17 08:21 PT 11.7 SECONDS (9.7-12.2) 03/01/17 18:35 INR 1.0 03/01/17 18:35 APTT 33 SECONDS (21-34) 03/01/17 18:35 - Additional Findings Additional findings: - Constitutional Appears: Non-toxic, No Acute Distress - Eye Exam Eye Exam: Normal appearance, PERRL. absent: Scleral icterus Pupil Exam: NORMAL ACCOMODATION - Respiratory Exam Respiratory Exam: Clear to Auscultation Bilateral. absent: Rales, Rhonchi, Wheezes - Cardiovascular Exam Cardiovascular Exam: REGULAR RHYTHM, RRR, +S1, +S2. absent: Gallop, Rubs - GI/Abdominal Exam GI & Abdominal Exam: Normal Bowel Sounds, Soft. absent: Distended, Guarding, Rebound, Tenderness - Exam External exam: wyman in place, urine appears more clear - Extremities Exam Extremities exam: Positive for: normal inspection, tenderness. Negative for: pedal edema Additional comments: varicose veins present - Back Exam Back exam: NORMAL INSPECTION. absent: CVA tenderness (L), CVA tenderness (R) - Neurological Exam Neurological exam: Oriented x3 - Psychiatric Exam Psychiatric exam: Normal Affect, Normal Mood - Skin Skin Exam: Dry, Pallor, Warm Assessment and Plan - Assessment and Plan (Free Text) Plan: Rio Hematuria Assessment and Plan: Urology consulted - Dr. Shahnaz Walker - help appreciated Hold her Aspirin and VTE prophylaxis Monitor her hemoglobin- remains stable - continue to monitor Cystoscopy scheduled for today with Dr. Shahnaz Walker - recommend to keep wyman in place Patient seen today by Dr. Saravanan Walker - will keep wyman tonight, attempt voiding trial tomorrow - as urine appears to be clearing up. Hemorrhagic cystitis noted on cystoscopy. UTI Assessment and Plan: Labs: UA shows Nitrate, 315 WBCS, Luecocyte esterase, +3 protein. UC - Proteus - sensitive to rocephin and Cipro - we will repeat urine culture Medications: Started on Rocephin 1 gram IVP daily - 03/02/17 Anemia Assessment and Plan: Hbg is stable Type and Screened, will transfuse as needed Vaginal prolapse Assessment and Plan: She has a pessarry Gout Assessment and Plan: Continue her home Allopruinol Hypothyroidism Assessment and Plan: Continue her home Synthroid 137mcg Herniated intervertebral disc of lumbar spine Assessment and Plan: Hold her Celebrex, will given pain Morphine 0.5 mg Q4H prn Hyperlipidemia Assessment and Plan: Continue his home Gemfibrozil Prophylactic measure Assessment and Plan: Hold chemical VTE due to active bleeding, SCDs Pepcid 20mg bid As per patient and daughter Mariana she has a POLST filled out at home - DNR- copy was placed in chart Mariana (daughter) [phone] DW Nayely Calvert DO, PGY-1 <Travis Parker H - Last Filed: 03/05/17 17:41> Objective - Vital Signs/Intake and Output Vital Signs (last 24 hours): Temp Pulse Resp BP Pulse Ox 97.7 F 68 20 155/71 H 95 03/05/17 15:00 03/05/17 15:00 03/05/17 15:00 03/05/17 15:00 03/05/17 15:00 Intake and Output: 03/05/17 03/05/17 06:59 18:59 Intake Total 600 550 Output Total 850 600 Balance -250 -50 - Medications Medications: Current Medications Allopurinol (Zyloprim) 300 mg PO DAILY [facility] Last Admin: 03/05/17 11:17 Dose: 300 mg Famotidine (Pepcid) 20 mg PO BID [facility] Last Admin: 03/05/17 11:17 Dose: 20 mg Gemfibrozil (Lopid) 600 mg PO BID [facility] Last Admin: 03/05/17 11:17 Dose: 600 mg Ceftriaxone Sodium 1 gm/ (Sodium Chloride) 100 mls @ 100 mls/hr IVPB DAILY [facility] Last Admin: 03/05/17 11:18 Dose: 100 mls/hr Levothyroxine Sodium (Synthroid) 50 mcg PO DAILY@0630 [facility] Last Admin: 03/05/17 05:59 Dose: 50 mcg - Labs Labs: 03/05/17 08:21 03/05/17 08:21 PT 11.7 SECONDS (9.7-12.2) 03/01/17 18:35 INR 1.0 03/01/17 18:35 APTT 33 SECONDS (21-34) 03/01/17 18:35 Attending/Attestation - Attestation I have personally seen and examined this patient.: Yes I have fully participated in the care of the patient.: Yes I have reviewed all pertinent clinical information, including history, physical exam and plan: Yes Notes (Text): 03/05/17 17:40 Medical consult: Patient was seen and examined by me, agrees the above note by forensic medical examiner. Today the patient's son was at bedside and we had a nice conversation. The patient still has a Wyman catheter at this time, per inspection the catheter bag the urine is still very dark pasha color. The patient does not have any pain. She also denies having fevers and chills and denies abdominal pain. She reports that she has not had a bowel movement. We will continue try giving stool softeners Also as mentioned previously the patient grew out Proteus urine culture, it is sensitive to the antibiotics were giving so we will continue this. In the meantime were repeating a UA and urine culture We'll have to clarify the patient should be going home with a Wyman catheter. Also there was some discussion with the patient should go home or to subacute rehabilitation the patient herself was undecided at this moment Thank you very much, Travis Parker
[2017-03-06] MEDS: Levothyroxine 50 MCG TAB PO SCH (06:03)
[2017-03-06 07:16] LABS: HEMOGLOBIN 9.6 g/dL (11.0-16.0); MEAN CORPUSCULAR HEMOGLOBIN 30.1 pg (27.0-31.0); MEAN CORPUSCULAR HGB CONC 32.8 g/dL (33.0-37.0); MEAN PLATELET VOLUME 10.6 fL (7.2-11.7); RBC 3.17 Mil/uL (3.80-5.20); RED CELL DISTRIBUTION WIDTH 14.8 % (11.5-14.5); WHITE BLOOD COUNT 10.4 K/uL (4.8-10.8)
[2017-03-06 07:39] LABS: ALB/GLOB RATIO 0.9 (1.0-2.1); ALBUMIN 3.2 g/dL (3.5-5.0); CALCIUM 8.6 mg/dl (8.6-10.4); MAGNESIUM 1.7 mg/dL (1.6-2.3)
--- NOTE | 2017-03-06 09:29 | CP.PCM.PN ---
<CariNahomy - Last Filed: 03/06/17 09:37> Subjective - Date & Time of Evaluation Date of Evaluation: 03/06/17 Time of Evaluation: 09:29 - Subjective Subjective: Progress Note for Dr. Parker Patient seen and examined at bedside. No acute events overnight. Patient stated she had a couple of bowel movements overnight. Patient denied fever and chills. Patient stated she feels find and has always had a breathing problem due to her long smoking history. Patient denies abdominal pain as well. Patient states her homemaker is going to go on vacation from March 11 for three weeks. Objective - Vital Signs/Intake and Output Vital Signs (last 24 hours): Temp Pulse Resp BP Pulse Ox 98 F 64 20 138/77 96 03/06/17 00:00 03/06/17 00:00 03/06/17 00:00 03/06/17 00:00 03/06/17 00:00 Intake and Output: 03/06/17 03/06/17 06:59 18:59 Intake Total 660 Output Total 850 Balance -190 - Medications Medications: Current Medications Allopurinol (Zyloprim) 300 mg PO DAILY [facility] Last Admin: 03/05/17 11:17 Dose: 300 mg Famotidine (Pepcid) 20 mg PO BID [facility] Last Admin: 03/05/17 18:09 Dose: 20 mg Gemfibrozil (Lopid) 600 mg PO BID [facility] Last Admin: 03/05/17 18:09 Dose: 600 mg Ceftriaxone Sodium 1 gm/ (Sodium Chloride) 100 mls @ 100 mls/hr IVPB DAILY [facility] Last Admin: 03/05/17 11:18 Dose: 100 mls/hr Levothyroxine Sodium (Synthroid) 50 mcg PO DAILY@0630 [facility] Last Admin: 03/06/17 06:03 Dose: 50 mcg - Labs Labs: 03/06/17 06:52 03/06/17 06:52 PT 11.7 SECONDS (9.7-12.2) 03/01/17 18:35 INR 1.0 03/01/17 18:35 APTT 33 SECONDS (21-34) 03/01/17 18:35 - Constitutional Appears: Non-toxic, No Acute Distress - Head Exam Head Exam: NORMAL INSPECTION - Eye Exam Eye Exam: EOMI, Normal appearance - ENT Exam ENT Exam: Mucous Membranes Moist - Neck Exam Neck Exam: Full ROM. absent: Tenderness, Thyromegaly - Respiratory Exam Respiratory Exam: Decreased Breath Sounds, NORMAL BREATHING PATTERN. absent: Accessory Muscle Use, Rhonchi, Wheezes - Cardiovascular Exam Cardiovascular Exam: REGULAR RHYTHM, +S1, +S2 - GI/Abdominal Exam GI & Abdominal Exam: Soft. absent: Tenderness Assessment and Plan - Assessment and Plan (Free Text) Assessment: [place] Hematuria Assessment and Plan: Urology consulted - Dr. Shahnaz Walker - help appreciated Hold her Aspirin and VTE prophylaxis Monitor her hemoglobin- remains stable - continue to monitor Cystoscopy scheduled for today with Dr. Shahnaz Walker - recommend to keep wyman in place Patient seen today by Dr. Saravanan Walker - will keep wyman tonight, attempt voiding trial tomorrow - as urine appears to be clearing up. Hemorrhagic cystitis noted on cystoscopy. UTI Assessment and Plan: Labs: UA shows Nitrate, 315 WBCS, Luecocyte esterase, +3 protein. UC - Proteus - sensitive to rocephin and Cipro - we will repeat urine culture 03/06 voiding trial attempt today, discontinue wyman when passed Medications: Started on Rocephin 1 gram IVP daily - 03/02/17 Anemia Assessment and Plan: Hbg is stable Type and Screened, will transfuse as needed Vaginal prolapse Assessment and Plan: She has a pessarry Gout Assessment and Plan: Continue her home Allopruinol Hypothyroidism Assessment and Plan: Continue her home Synthroid 137mcg Herniated intervertebral disc of lumbar spine Assessment and Plan: Hold her Celebrex, will given pain Morphine 0.5 mg Q4H prn Hyperlipidemia Assessment and Plan: Continue his home Gemfibrozil Prophylaxis Assessment and Plan: Hold chemical VTE due to active bleeding, SCDs Pepcid 20mg bid As per patient and daughter Mariana she has a POLST filled out at home - DNR- copy was placed in chart 03/06 Per patient, daughter is aware that homemaker is going on vacation starting March 11 for three weeks. Patient would prefer [facility] for the time that her homemaker is gone. 03/06 voiding trial attempt today, discontinue wyman when passed Mariana (daughter) [phone] DW Nahomy Calvert, DO PGY1 <Travis Parker - Last Filed: 03/06/17 12:15> Objective - Vital Signs/Intake and Output Vital Signs (last 24 hours): Temp Pulse Resp BP Pulse Ox 98 F 64 20 138/77 96 03/06/17 00:00 03/06/17 00:00 03/06/17 00:00 03/06/17 00:00 03/06/17 00:00 Intake and Output: 03/06/17 03/06/17 06:59 18:59 Intake Total 660 Output Total 850 Balance -190 - Medications Medications: Current Medications Allopurinol (Zyloprim) 300 mg PO DAILY [facility] Last Admin: 03/06/17 10:19 Dose: 300 mg Famotidine (Pepcid) 20 mg PO BID [facility] Last Admin: 03/06/17 10:19 Dose: 20 mg Gemfibrozil (Lopid) 600 mg PO BID [facility] Last Admin: 03/06/17 10:19 Dose: 600 mg Ceftriaxone Sodium 1 gm/ (Sodium Chloride) 100 mls @ 100 mls/hr IVPB DAILY [facility] Last Admin: 03/06/17 10:18 Dose: 100 mls/hr Levothyroxine Sodium (Synthroid) 50 mcg PO DAILY@0630 [facility] Last Admin: 03/06/17 06:03 Dose: 50 mcg - Labs Labs: 03/06/17 06:52 03/06/17 06:52 PT 11.7 SECONDS (9.7-12.2) 03/01/17 18:35 INR 1.0 03/01/17 18:35 APTT 33 SECONDS (21-34) 03/01/17 18:35 Attending/Attestation - Attestation I have personally seen and examined this patient.: Yes I have fully participated in the care of the patient.: Yes I have reviewed all pertinent clinical information, including history, physical exam and plan: Yes Notes (Text): 03/06/17 12:12 Medical attending: patient was seen and examined by me as well She is very talkative today. Denied having any acute events overnight Denied having abdominal pain Tolerating diet well Currently voiding trial today Patient does not want to go home since she does not have a trans router there available so she is requesting [facility] thank you Travis Parker
[2017-03-06 09:56] LABS: BASO # 0.1 K/uL (0.0-0.2); BASO % 0.7 % (0.0-2.0); EOS # 0.5 K/uL (0.0-0.7); EOS % 4.5 % (0.0-4.0); LYMPH # 3.1 K/uL (1.0-4.3); LYMPH % 30.1 % (20.0-40.0); MONO # 0.6 K/uL (0.0-0.8); MONO % 5.5 % (0.0-10.0); NEUT # 6.1 K/uL (1.8-7.0); NEUT % 59.2 % (50.0-75.0); NRBC % 0.2 % (0.0-2.0)
[2017-03-07] MEDS: Levothyroxine 50 MCG TAB PO SCH (06:01)
[2017-03-07 09:02] LABS: BASO # 0.1 K/uL (0.0-0.2); BASO % 1.1 % (0.0-2.0); EOS # 0.4 K/uL (0.0-0.7); EOS % 4.4 % (0.0-4.0); HEMOGLOBIN 10.2 g/dL (11.0-16.0); LYMPH # 3.5 K/uL (1.0-4.3); LYMPH % 37.1 % (20.0-40.0); MEAN CELL VOLUME 92.3 fL (81.0-99.0); MEAN CORPUSCULAR HEMOGLOBIN 30.4 pg (27.0-31.0); MEAN PLATELET VOLUME 10.2 fL (7.2-11.7); MONO # 0.4 K/uL (0.0-0.8); MONO % 4.3 % (0.0-10.0); NEUT # 4.9 K/uL (1.8-7.0); NEUT % 53.1 % (50.0-75.0); NRBC % 0.1 % (0.0-2.0); RBC 3.36 Mil/uL (3.80-5.20); RED CELL DISTRIBUTION WIDTH 14.9 % (11.5-14.5); WHITE BLOOD COUNT 9.3 K/uL (4.8-10.8)
[2017-03-07 09:19] LABS: ALB/GLOB RATIO 1.2 (1.0-2.1); ALBUMIN 3.6 g/dL (3.5-5.0); MAGNESIUM 1.6 mg/dL (1.6-2.3)
--- NOTE | 2017-03-07 09:51 | CP.PCM.PN ---
<Nahomy Alcala - Last Filed: 03/07/17 09:49> Subjective - Date & Time of Evaluation Date of Evaluation: 03/07/17 Time of Evaluation: 09:51 - Subjective Subjective: Progress Note for Dr. Parker Patient has no complaints at this time. Denies fever, chills, headache, nausea, vomiting. Patient requests subacute rehab to be at [facility] from [facility]. Objective - Vital Signs/Intake and Output Vital Signs (last 24 hours): Temp Pulse Resp BP Pulse Ox 98.4 F 71 20 157/70 H 96 03/07/17 00:00 03/07/17 00:00 03/07/17 00:00 03/07/17 00:00 03/07/17 00:00 Intake and Output: 03/07/17 03/07/17 06:59 18:59 Intake Total 370 Balance 370 - Medications Medications: Current Medications Allopurinol (Zyloprim) 300 mg PO DAILY [facility] Last Admin: 03/07/17 09:40 Dose: 300 mg Famotidine (Pepcid) 20 mg PO BID [facility] Last Admin: 03/07/17 09:40 Dose: 20 mg Gemfibrozil (Lopid) 600 mg PO BID [facility] Last Admin: 03/07/17 09:40 Dose: 600 mg Ceftriaxone Sodium 1 gm/ (Dextrose) 50 mls @ 100 mls/hr IVPB DAILY [facility] Last Admin: 03/07/17 09:40 Dose: 100 mls/hr Levothyroxine Sodium (Synthroid) 50 mcg PO DAILY@0630 [facility] Last Admin: 03/07/17 06:01 Dose: 50 mcg - Labs Labs: 03/07/17 08:47 03/07/17 08:47 PT 11.7 SECONDS (9.7-12.2) 03/01/17 18:35 INR 1.0 03/01/17 18:35 APTT 33 SECONDS (21-34) 03/01/17 18:35 - Constitutional Appears: Non-toxic, No Acute Distress - Head Exam Head Exam: ATRAUMATIC, NORMAL INSPECTION, NORMOCEPHALIC - Eye Exam Eye Exam: EOMI, Normal appearance - ENT Exam ENT Exam: Mucous Membranes Moist - Neck Exam Neck Exam: Full ROM - Respiratory Exam Respiratory Exam: Decreased Breath Sounds, Clear to Ausculation Bilateral, NORMAL BREATHING PATTERN. absent: Accessory Muscle Use - Cardiovascular Exam Cardiovascular Exam: REGULAR RHYTHM, +S1, +S2 - GI/Abdominal Exam GI & Abdominal Exam: Soft, Normal Bowel Sounds. absent: Tenderness - Extremities Exam Extremities Exam: Full ROM. absent: Pedal Edema - Neurological Exam Neurological Exam: Alert, Awake, Oriented x3 - Psychiatric Exam Psychiatric exam: Normal Affect, Normal Mood - Skin Skin Exam: Dry, Intact, Warm Assessment and Plan - Assessment and Plan (Free Text) Assessment: [place] Hematuria Assessment and Plan: Urology consulted - Dr. Shahnaz Walker - help appreciated Hold her Aspirin and VTE prophylaxis Monitor her hemoglobin- remains stable - continue to monitor Cystoscopy scheduled for today with Dr. Shahnaz Walker - recommend to keep wyman in place Patient seen today by Dr. Saravanan Walker - will keep wyman tonight, attempt voiding trial tomorrow - as urine appears to be clearing up. Hemorrhagic cystitis noted on cystoscopy. UTI Assessment and Plan: Labs: UA shows Nitrate, 315 WBCS, Luecocyte esterase, +3 protein. UC - Proteus - sensitive to rocephin and Cipro - we will repeat urine culture 03/06 voiding trial attempt today, discontinue wyman when passed Medications: Started on Rocephin 1 gram IVP daily - 03/02/17 Anemia Assessment and Plan: Hbg is stable Type and Screened, will transfuse as needed Vaginal prolapse Assessment and Plan: She has a pessarry Gout Assessment and Plan: Continue her home Allopruinol Hypothyroidism Assessment and Plan: Continue her home Synthroid 137mcg Herniated intervertebral disc of lumbar spine Assessment and Plan: Hold her Celebrex, will given pain Morphine 0.5 mg Q4H prn Hyperlipidemia Assessment and Plan: Continue his home Gemfibrozil Prophylaxis Assessment and Plan: Hold chemical VTE due to active bleeding, SCDs Pepcid 20mg bid As per patient and daughter Mariana she has a POLST filled out at home - DNR- copy was placed in chart 03/06 Per patient, daughter is aware that homemaker is going on vacation starting March 11 for three weeks. Patient would prefer [facility] for the time that her homemaker is gone. 03/06 voiding trial attempt today, discontinue wyman when passed Mariana (daughter) [phone] ParkerNahomy, DO PGY1 <ElenaTravis H - Last Filed: 03/07/17 12:45> Objective - Vital Signs/Intake and Output Vital Signs (last 24 hours): Temp Pulse Resp BP Pulse Ox 97.7 F 60 20 139/57 L 95 03/07/17 10:03 03/07/17 10:03 03/07/17 10:03 03/07/17 10:03 03/07/17 10:03 Intake and Output: 03/07/17 03/07/17 06:59 18:59 Intake Total 370 Balance 370 - Medications Medications: Current Medications Allopurinol (Zyloprim) 300 mg PO DAILY [facility] Last Admin: 03/07/17 09:40 Dose: 300 mg Famotidine (Pepcid) 20 mg PO BID [facility] Last Admin: 03/07/17 09:40 Dose: 20 mg Gemfibrozil (Lopid) 600 mg PO BID [facility] Last Admin: 03/07/17 09:40 Dose: 600 mg Ceftriaxone Sodium 1 gm/ (Dextrose) 50 mls @ 100 mls/hr IVPB DAILY [facility] Last Admin: 03/07/17 09:40 Dose: 100 mls/hr Levothyroxine Sodium (Synthroid) 50 mcg PO DAILY@0630 [facility] Last Admin: 03/07/17 06:01 Dose: 50 mcg - Labs Labs: 03/07/17 08:47 03/07/17 08:47 PT 11.7 SECONDS (9.7-12.2) 03/01/17 18:35 INR 1.0 03/01/17 18:35 APTT 33 SECONDS (21-34) 03/01/17 18:35 Attending/Attestation - Attestation I have personally seen and examined this patient.: Yes I have fully participated in the care of the patient.: Yes I have reviewed all pertinent clinical information, including history, physical exam and plan: Yes Notes (Text): Medical Attending: Patient was seen and examined by me Agree with the above note by the resident I also spoke with the patient's POA and daughter Sylvia over the phone and gave her an update The Hgb is also stable as well The wyman was removed yesterday. Patient reports not seeing any dark urine - it looked clear she reported. When she goes to rehab, probably continue on PO abx. Will need to follow up with the urology outpatient thank you Travis Parker
[2017-03-08 00:31] VITALS: O2SAT 96
[2017-03-08] MEDS: Levothyroxine 50 MCG TAB PO SCH (05:32)
[2017-03-08 07:43] LABS: BASO % 0.2 % (0.0-2.0); EOS # 0.4 K/uL (0.0-0.7); EOS % 3.8 % (0.0-4.0); HEMOGLOBIN 10.3 g/dL (11.0-16.0); LYMPH # 3.8 K/uL (1.0-4.3); LYMPH % 37.5 % (20.0-40.0); MEAN CELL VOLUME 91.7 fL (81.0-99.0); MEAN CORPUSCULAR HEMOGLOBIN 30.5 pg (27.0-31.0); MEAN CORPUSCULAR HGB CONC 33.2 g/dL (33.0-37.0); MEAN PLATELET VOLUME 10.1 fL (7.2-11.7); MONO # 0.5 K/uL (0.0-0.8); MONO % 4.9 % (0.0-10.0); NEUT # 5.4 K/uL (1.8-7.0); NEUT % 53.6 % (50.0-75.0); RBC 3.37 Mil/uL (3.80-5.20); WHITE BLOOD COUNT 10.1 K/uL (4.8-10.8)
[2017-03-08 08:33] LABS: ALB/GLOB RATIO 1.3 (1.0-2.1); ALBUMIN 3.5 g/dL (3.5-5.0); CALCIUM 8.9 mg/dl (8.6-10.4); MAGNESIUM 1.6 mg/dL (1.6-2.3)
[2017-03-08] MEDS ORDERED: Sodium Chloride 0.45% 250 ML IV ONE (09:08)
--- NOTE | 2017-03-08 09:40 | VASCLAB ---
PROCEDURE: Lower Extremity Venous Duplex Exam. HISTORY: r/o DVT PRIORS: None. TECHNIQUE: Bilateral common femoral, femoral, popliteal and posterior tibial, peroneal and great saphenous veins were evaluated. Flow was assessed with color Doppler, compressibility, assessment of phasic flow and augmentation response. Report prepared by Hugo Perdomo, NIKKI, RVT FINDINGS: RIGHT: 1. Common Femoral Vein: 1.1. Compressibility - Fully compressible: Thrombus - None : Flow - Phasic: Augmentation -Normal: Reflux - None. 2. Femoral Vein: 2.1. Compressibility - Fully compressible: Thrombus - None : Flow - Phasic: Augmentation -Normal: Reflux - None. 3. Popliteal Vein: 3.1. Compressibility - Fully compressible: Thrombus - None : Flow - Phasic: Augmentation -Normal: Reflux - None. 4. Posterior Tibial Vein: 4.1. Compressibility - Fully compressible: Thrombus - None: Flow - Phasic: Augmentation -Normal: Reflux - None. 5. Peroneal Vein: 5.1. Compressibility - Fully compressible: Thrombus - None: Flow - Phasic: Augmentation -Normal: Reflux - None. 6. Great Saphenous Vein: 6.1. Compressibility - Fully compressible: Thrombus - None: Flow - Phasic: Augmentation - Normal: Reflux - None. LEFT: 1. Common Femoral Vein: 1.1. Compressibility - Fully compressible: Thrombus - None: Flow - Phasic: Augmentation -Normal: Reflux - None. 2. Femoral Vein: 2.1. Compressibility - Fully compressible: Thrombus - None: Flow - Phasic: Augmentation -Normal: Reflux - None. 3. Popliteal Vein: 3.1. Compressibility - Fully compressible: Thrombus - None : Flow - Phasic: Augmentation -Normal: Reflux - None. 4. Posterior Tibial Vein: 4.1. Compressibility - Fully compressible: Thrombus - None: Flow - Phasic: Augmentation -Normal: Reflux - None. 5. Peroneal Vein: 5.1. Compressibility - Fully compressible: Thrombus - None: Flow - Phasic: Augmentation -Normal: Reflux - None. 6. Great Saphenous Vein: 6.1. Compressibility - Fully compressible: Thrombus - None: Flow - Phasic: Augmentation - Normal: Reflux - None. OTHER FINDINGS: Right: None significant. Left: None significant. IMPRESSION: Right: No evidence of deep or superficial vein thrombosis of the right lower extremity. Normal valve function noted of the right side. Left: No evidence of deep or superficial vein thrombosis of the left lower extremity. Normal valve function noted of the left side.
--- NOTE | 2017-03-08 13:58 | CP.PCM.DIS ---
Provider - Provider Date of Admission: 03/01/17 19:11 Attending physician: Travis Parker DO Time Spent in preparation of Discharge (in minutes): 55 Hospital Course - Lab Results Lab Results: Micro Results 03/01/17 20:00 Blood-Venous Blood Culture - Final NO GROWTH AFTER 5 DAYS 03/01/17 20:00 Blood-Venous Gram Stain - Final TEST NOT PERFORMED 03/01/17 19:30 Blood-Venous Blood Culture - Final NO GROWTH AFTER 5 DAYS 03/01/17 19:30 Blood-Venous Gram Stain - Final TEST NOT PERFORMED 03/05/17 14:32 Urine,Wyman Urine Culture - Final No Growth (<1,000 CFU/ML) 03/01/17 16:06 Urine Urine Culture - Final Proteus Mirabilis Most Recent Lab Values WBC 10.1 K/uL (4.8-10.8) 03/08/17 07:34 RBC 3.37 Mil/uL (3.80-5.20) L 03/08/17 07:34 Hgb 10.3 g/dL (11.0-16.0) L 03/08/17 07:34 Hct 30.9 % (34.0-47.0) L 03/08/17 07:34 MCV 91.7 fL (81.0-99.0) 03/08/17 07:34 MCH 30.5 pg (27.0-31.0) 03/08/17 07:34 MCHC 33.2 g/dL (33.0-37.0) 03/08/17 07:34 RDW 15.0 % (11.5-14.5) H 03/08/17 07:34 Plt Count 310 K/uL (130-400) 03/08/17 07:34 MPV 10.1 fL (7.2-11.7) 03/08/17 07:34 Neut % (Auto) 53.6 % (50.0-75.0) 03/08/17 07:34 Lymph % (Auto) 37.5 % (20.0-40.0) 03/08/17 07:34 [place] % (Auto) 4.9 % (0.0-10.0) 03/08/17 07:34 Eos % (Auto) 3.8 % (0.0-4.0) 03/08/17 07:34 Baso % (Auto) 0.2 % (0.0-2.0) 03/08/17 07:34 Neut # 5.4 K/uL (1.8-7.0) 03/08/17 07:34 Lymph # 3.8 K/uL (1.0-4.3) 03/08/17 07:34 [place] # 0.5 K/uL (0.0-0.8) 03/08/17 07:34 Eos # 0.4 K/uL (0.0-0.7) 03/08/17 07:34 Baso # 0.0 K/uL (0.0-0.2) 03/08/17 07:34 PT 11.7 SECONDS (9.7-12.2) 03/01/17 18:35 INR 1.0 03/01/17 18:35 APTT 33 SECONDS (21-34) 03/01/17 18:35 Sodium 139 mmol/L (132-148) 03/08/17 07:34 Potassium 3.9 mmol/L (3.6-5.2) 03/08/17 07:34 Chloride 106 mmol/L (98-107) 03/08/17 07:34 Carbon Dioxide 27 mmol/L (22-30) 03/08/17 07:34 Anion Gap 10 (10-20) 03/08/17 07:34 BUN 29 mg/dL (7-17) H 03/08/17 07:34 Creatinine 1.4 mg/dL (0.7-1.2) H 03/08/17 07:34 Est GFR ( Amer) 43 03/08/17 07:34 Est GFR (Non-Af Amer) 35 03/08/17 07:34 Random Glucose 94 mg/dL (65-105) 03/08/17 07:34 Calcium 8.9 mg/dl (8.6-10.4) 03/08/17 07:34 Phosphorus 3.6 mg/dL (2.5-4.5) 03/08/17 07:34 Magnesium 1.6 mg/dL (1.6-2.3) 03/08/17 07:34 Total Bilirubin 0.5 mg/dL (0.2-1.3) 03/08/17 07:34 AST 24 U/L (14-36) 03/08/17 07:34 ALT 34 U/L (9-52) 03/08/17 07:34 Alkaline Phosphatase 150 U/L (38-126) H 03/08/17 07:34 Total Protein 6.3 g/dL (6.3-8.3) 03/08/17 07:34 Albumin 3.5 g/dL (3.5-5.0) 03/08/17 07:34 Globulin 2.8 gm/dL (2.2-3.9) 03/08/17 07:34 Albumin/Globulin Ratio 1.3 (1.0-2.1) 03/08/17 07:34 Urine Color Red (YELLOW) 03/01/17 17:30 Urine Clarity Turbid (Clear) 03/01/17 17:30 Urine pH 7.0 (5.0-8.0) 03/01/17 17:30 Ur Specific [place] 1.012 (1.003-1.030) 03/01/17 17:30 Urine Protein 3+ mg/dL (NEGATIVE) H 03/01/17 17:30 Urine Glucose (UA) 1+ mg/dL (Normal) 03/01/17 17:30 Urine Ketones 1+ mg/dL (NEGATIVE) H 03/01/17 17:30 Urine Blood 3+ (NEGATIVE) H 03/01/17 17:30 Urine Nitrate Positive (NEGATIVE) H 03/01/17 17:30 Urine Bilirubin Negative (NEGATIVE) 03/01/17 17:30 Urine Urobilinogen 4.0 mg/dL (0.2-1.0) H 03/01/17 17:30 Ur Leukocyte Esterase 2+ Ken/uL (Negative) H 03/01/17 17:30 Urine WBC (Auto) 315 /hpf (0-5) H 03/01/17 17:30 Urine RBC (Auto) 7015 /hpf (0-3) H 03/01/17 17:30 Hepatitis A IgM Ab Negative (NEGATIVE) 03/02/17 07:41 Hep Bs Antigen Negative (NEGATIVE) 03/02/17 07:41 Hep B Core IgM Ab Negative (NEGATIVE) 03/02/17 07:41 Hepatitis C Antibody Negative (NEGATIVE) 03/02/17 07:41 Blood Type A POSITIVE 03/03/17 07:10 Antibody Screen Negative 03/03/17 07:10 - Hospital Course Hospital Course: Upon Admission: CC: Hematuria and Dysuira HPI: Patient is a 86 year old female with a history of frequent UTI, abnormal uterine bleeding, Gout, GERD, and low back pain is here because she has been having gross hematuria for several days with a pressure like lower abdominal pain also associated with urination. She says she had a similar UTI in the past and was treated with PO antibiotics and got better. She was given the same oral antibiotic for UTI last week but her symptoms have not resolved. She says she has been having some dizziness as well. She denies fever, chills, nausea, vomiting, chest pain, palpitations, cough, or chest tightness. Patient uses a pessary for uterine prolapse and is sen by her [employer] physician atleast once a month. PMH: see above PSH: right hip surgery, bladder sling surgery FH: Mother diagnosed with cancer when she was in her 80s SH: 50 year smoking history, denies etoh, or illicit drug use, retired, lives alone. PMD: Dr. Ramirez Throughout Hospital Course: Patient was admitted for gross hematuria and UTI. Patient was evaluated by Urology, Dr. Shahnaz Walker. She had a cystoscopy performed showing hemorrhagic cystitis. Wyman was removed after successfully passing a voiding trial. 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 She was discharged to [facility]. [place] Hematuria Assessment and Plan: Urology consulted - Dr. Shahnaz Walker - help appreciated Hold her Aspirin and VTE prophylaxis Monitor her hemoglobin- remains stable - continue to monitor Cystoscopy scheduled for today with Dr. Shahnaz Walker - recommend to keep wyman in place Patient seen today by Dr. Saravanan Walker - successfully removed wyman UTI Assessment and Plan: Labs: UA shows Nitrate, 315 WBCS, Luecocyte esterase, +3 protein. UC - Proteus - sensitive to rocephin and Cipro - repeat urine culture - showed no growth 03/06 voiding trial attempt today, discontinue wyman when passed Medications: Started on Rocephin 1 gram IVP daily - 03/02/17 - will be discharged with CIPRO Anemia Assessment and Plan: Hbg is stable Type and Screened, will transfuse as needed Vaginal prolapse Assessment and Plan: She has a pessarry Gout Assessment and Plan: Continue her home Allopruinol Hypothyroidism Assessment and Plan: Continue her home Synthroid 137mcg Herniated intervertebral disc of lumbar spine Assessment and Plan: Hold her Celebrex, will given pain Morphine 0.5 mg Q4H prn Hyperlipidemia Assessment and Plan: Continue his home Gemfibrozil Prophylaxis Assessment and Plan: Hold chemical VTE due to active bleeding, SCDs Pepcid 20mg bid As per patient and daughter Mariana she has a POLST filled out at home - DNR- copy was placed in chart 03/06 Per patient, daughter is aware that homemaker is going on vacation starting March 11 for three weeks. Patient would prefer [facility] for the time that her homemaker is gone. 03/06 voiding trial attempt today, discontinue wyman when passed Mariana (daughter) [phone] Parker, Nahomy Alcala, DO PGY1 This is a brief summary of the patient's hospital course. Please review EMR for full record. Discharge Exam - Head Exam Head Exam: ATRAUMATIC, NORMAL INSPECTION, NORMOCEPHALIC - Additional Findings Additional findings: - Constitutional Appears: Non-toxic, No Acute Distress - Head Exam Head Exam: ATRAUMATIC, NORMAL INSPECTION, NORMOCEPHALIC - Eye Exam Eye Exam: EOMI, Normal appearance - ENT Exam ENT Exam: Mucous Membranes Moist - Neck Exam Neck Exam: Full ROM - Respiratory Exam Respiratory Exam: Clear to Ausculation Bilateral, NORMAL BREATHING PATTERN. absent: Accessory Muscle Use - Cardiovascular Exam Cardiovascular Exam: REGULAR RHYTHM, +S1, +S2 - GI/Abdominal Exam GI & Abdominal Exam: Soft, Normal Bowel Sounds. absent: Tenderness - Extremities Exam Extremities Exam: Full ROM. absent: Pedal Edema - Neurological Exam Neurological Exam: Alert, Awake, Oriented x3 - Psychiatric Exam Psychiatric exam: Normal Affect, Normal Mood - Skin Skin Exam: Dry, Intact, Warm Discharge Plan - Discharge Medications Prescriptions: Ciprofloxacin HCl [Cipro] 250 mg PO BID 3 Days tab - Follow Up Plan Condition: GOOD Disposition: HOME/ ROUTINE Instructions: Urinary Tract Infection in Women (DC), Urinary Tract Infection in Men (DC), Dysuria (GEN) Additional Instructions: Patient is to be discharged to Subacute Rehab at [facility], per Dr. Chen. While there, the patient's hydration status should be monitored due to a slightly elevated BUN/Cr. Patient is being given a 3 day script for Cipro to be completed while at rehab. Patient is to continue to take her home medications as prescribed by her primary care physician, Dr. Ramirez. If patient experiences any new or worsening symptoms, please call or return to the hospital. Referrals: Obed Walker MD [Staff Provider] -
[2017-03-08 16:41] VITALS: BP 155/69; PULSE 72; TEMP 98.5
--- NOTE | 2017-03-26 09:13 | OP ---
PROCEDURE DATE: 03/04/2017 PREOPERATIVE DIAGNOSES: Hematuria, urinary retention, voiding dysfunction. POSTOPERATIVE DIAGNOSES: Hematuria, urinary retention, voiding dysfunction and mild cystocele. COMPLICATIONS: There were no complications. UROLOGY OPERATIVE FINDINGS: No bladder masses are detected, relatively normal upper tract. There were concerns for malignancy. Please see the plan and the addendum at the end. The findings are relatively normal bladder mucosa and relatively normal upper tract. INDICATIONS: See history and physical and consultation. Very pleasant lady here because she has gross hematuria, multiple medical things were discussed. After discussing the options, risks, benefits, and treatment alternatives, she is here now for further diagnostic study. DESCRIPTION OF PROCEDURE: After obtaining informed consent, the patient was placed on the table. Routine monitors were placed. Time-out was called. We confirmed the patient and positioning. Antibiotics are given. The patient is on antibiotics. . The patient is in lithotomy position. Time-out was called. We confirmed the patient, positioning. We introduced the cystoscope via urethra and bladder. We inspected carefully, no definite obvious lesion. We now did retrograde pyelogram. Bilateral retrograde pyelogram, left and right, they are essentially within normal limits. No major noted. Radiologist to read the films as well, but nothing easily detected from Urology standpoint. The patient tolerated the procedure well without complications. Isai Walker MD
== END 2017-03-08 20:45 | DRG 690 ==
LOC: C.ER 15:33 → C.9E 19:11 → C.3T 20:42 → C.9E 21:43 → C.3T 21:44
PROVIDERS: ADMIT Hospitalist; ATTEND Hospitalist
PROC: 0TJB8ZZ Inspection of Bladder, Via Natural or Artificial Opening Endoscopic (ICD-10-PCS; principal; 2017-03-04 08:00)
DX: N30.81 Other cystitis with hematuria (principal); R31.0 Gross hematuria; D64.9 Anemia, unspecified; E03.9 Hypothyroidism, unspecified; E78.5 Hyperlipidemia, unspecified; H81.09 Meniere's disease, unspecified ear; M10.9 Gout, unspecified; N81.4 Uterovaginal prolapse, unspecified; Z87.891 Personal history of nicotine dependence; K21.9 Gastro-esophageal reflux disease without esophagitis